=== PATIENT | female | born 1930 | race Caucasian/White ===

== ENCOUNTER 2017-04-24 12:42 | Inpatient (IN) | payer MEDICARE, BC ==
[~2017-04-24] VITALS: Ht 152.4 cm; Wt 81.2 kg
[~2017-04-24 12:42] MED LIST: ALTACE5 M1 PO; CARTIA XT180 MG PO; DIGOXIN125 MCG PO; DORZOLAMIDE HCL10 ML OP; KEFLEX500 MG PO; LASIX20 MG PO; LOVENOX60 MG/0.6 SC; NEXIUM40 MG PO; NORCO 5-325 TA1 EACH PO; NORVASC5 MG PO; OCUVITE TABLET1 EAC1 PO; OXYCODONE-ACET1 EAC1 PO; PANTOPRAZOLE SO40 MG PO; PLAVIX75 MG PO; POTASSIUM GLUC500 GM; PREDNISONE5 MG PO; PROMETHAZINE HC25 M1 PO; SYNTHROID125 MCG PO; THYROID MEDICATION PO; TOPROL XL100 MG PO; ULTRAM50 MG PO; VALIUM5 MG PO; XALATAN2.5 ML OU; [UNRECOGNIZED DRUG - OTHER] OU; lovenox SQ
[2017-04-24 13:53] LABS: BILIRUBIN,URINE NEGATIVE (NEGATIVE); KETONES,URINE NEGATIVE (NEGATIVE); LEUKOCYTE ESTERASE ,URINE TRACE (NEGATIVE); NITRITE,URINE NEGATIVE (NEGATIVE); PROTEIN,URINE DIPSTICK NEGATIVE (NEGATIVE); URINE UROBILINOGEN 0.2 mg/dL (0.2 - 1)
[2017-04-24 14:00] LABS: INR 1.27; PARTIAL THROMBOPLASTIN TIME 33.2 seconds (23.8-35.5); PROTHROMBIN TIME 16.6 seconds (11.9-14.5)
[2017-04-24 14:05] LABS: CLARITY,URINE SL CLOUDY (CLEAR); COLOR,URINE YELLOW (YELLOW)
[2017-04-24 14:09] LABS: ALBUMIN 3.8 g/dL (3.5-5.0); ALBUMIN/GLOBULIN RATIO 0.9 (0.8-2.0); ANION GAP 19.8 mmol/L (8-16); BACTERIA,URINE RARE /HPF; CALCIUM 9.2 mg/dL (8.4-10.2); CREATININE, SERUM 1.1 mg/dL (0.57-1.11); EPITHELIAL CELLS,URINE FEW /LPF; RBC,URINE 0-5 /HPF (0-5)
[2017-04-24 14:12] LABS: POTASSIUM 2.8 mmol/L (3.5-5.1)
[2017-04-24 14:16] LABS: CREATINE KINASE MB 1.2 ng/mL (0.00-5.00); TROPONIN I 0.041 ng/mL (0-0.300)
[2017-04-24 14:21] LABS: BASOPHILS # (AUTO) 0.1 (0.0-0.1); BASOPHILS % 0.7 % (0.0-1.0); EOSINOPHILS # (AUTO) 0.2 (0.0-0.4); EOSINOPHILS % 2.1 % (0.0-6.0); HEMATOCRIT 29.3 % (34.2-44.1); HEMOGLOBIN 9.2 g/dL (12.0-16.0); LYMPHOCYTES # (AUTO) 1.2 (1.0-3.2); LYMPHOCYTES % 12.1 % (18.0-39.1); MEAN CORPUSCULAR HEMOGLOBIN 29.6 pg (28-32); MEAN CORPUSCULAR HGB CONC 31.4 g/dL (31-35); MEAN CORPUSCULAR VOLUME 94.2 fL (81-99); MONOCYTES # (AUTO) 0.7 (0.2-0.8); MONOCYTES % 6.8 % (4.4-11.3); NEUTROPHILS # (AUTO) 7.9 (2.1-6.9); NEUTROPHILS % 77.8 % (38.7-80.0); PLATELET COUNT 365 x10e3/uL (140-360); RED BLOOD COUNT 3.11 x10e6/uL (3.6-5.1); RED CELL DISTRIBUTION WIDTH 15.8 % (11.7-14.4)
[2017-04-24] MEDS ORDERED: SODIUM CHLORIDE FLUSH 10 ML SYR INJ PRN (14:30)
[2017-04-24] MEDS ORDERED: ONDANSETRON HCL INJ 2 MG/ML VIAL IV PRN (14:30)
[2017-04-24] MEDS ORDERED: POTASSIUM CHLORIDE 20 MEQ TAB CR PO ONE ×2 (14:45→15:00)
--- NOTE | 2017-04-24 14:47 | Diagnostic Imaging Report ---
PROCEDURE:CHEST SINGLE (PORTABLE) TECHNIQUE:Portable AP chest INDICATION:Angina; irregular heartbeat. COMPARISON:Patients [facility], , CHEST SINGLE (PORTABLE), 01/29/2017, 10:55. FINDINGS: Study limited by underpenetration. Cardiomegaly with postoperative sequela of sternotomy. Questionable left pleural effusion. Left upper lung zone is clear. Intact skeleton. CONCLUSION: Limited study due to underpenetration. Questionable small left pleural effusion with either atelectasis or pneumonia. 2 view chest radiograph recommended. Dictated by: Claus Young M.D. on 04/24/2017 at 14:55 Electronically approved by: Claus Young M.D. on 04/24/2017 at 14:55
[2017-04-24] MEDS ORDERED: VIAGRA50 MG PO (15:33)
[2017-04-24] MEDS ORDERED: CALCIUM CARBON500 MG PO (15:33)
[2017-04-24] MEDS ORDERED: POTASSIUM CHLO20 ME1 PO (15:33)
[2017-04-24] MEDS ORDERED: METOPROLOL TART25 MG PO (15:33)
[2017-04-24] MEDS ORDERED: ACETAMINOPHEN325 M1 PO (15:33)
[2017-04-24] MEDS ORDERED: MELATONIN5 M3 PO (15:33)
[2017-04-24] MEDS ORDERED: DORZOLAMIDE HCL10 ML OP (15:33)
[2017-04-24] MEDS ORDERED: GABAPENTIN100 MG PO (15:33)
[2017-04-24] MEDS ORDERED: CALCITRIOL0.25 MCG PO (15:33)
[2017-04-24] MEDS ORDERED: CYMBALTA20 MG PO (15:33)
[2017-04-24] MEDS ORDERED: LORAZEPAM0.5 MG PO (15:33)
[2017-04-24] MEDS ORDERED: FERROUS SULFAT325 MG PO (15:33)
[2017-04-24] MEDS ORDERED: LACTULOSE20 GM/30 M PO (15:33)
[2017-04-24 16:50] VITALS: BP 125/69
[2017-04-24 18:13] VITALS: BP 125/69
[2017-04-24] MEDS ORDERED: ACETAMINOPHEN 325 MG TAB PO PRN (19:00)
[2017-04-24] MEDS ORDERED: FUROSEMIDE 20 MG TAB PO SCH (19:00)
[2017-04-24] MEDS ORDERED: LACTULOSE SYRUP 20 GM/30 ML UDC PO PRN (19:00)
[2017-04-24] MEDS ORDERED: TRAMADOL HCL 50 MG TAB PO PRN (19:00)
[2017-04-24 20:00] VITALS: BP 149/70
[2017-04-24 23:09] LABS: TROPONIN I 0.041 ng/mL (0-0.300)
[2017-04-25 00:17] VITALS: BP 137/73
[2017-04-25] MEDS: METOPROLOL TARTRATE 25 MG TAB PO SCH ×4 (00:39→18:00)
[2017-04-25] MEDS: LORAZEPAM 0.5 MG TAB PO PRN (00:39)
[2017-04-25 04:00] VITALS: BP 113/71
[2017-04-25] MEDS: LEVOTHYROXINE SODIUM 75 MCG TAB PO SCH (06:26)
[2017-04-25 06:31] LABS: BASOPHILS # (AUTO) 0.1 (0.0-0.1); EOSINOPHILS # (AUTO) 0.4 (0.0-0.4); EOSINOPHILS % 4.9 % (0.0-6.0); HEMATOCRIT 25.5 % (34.2-44.1); LYMPHOCYTES # (AUTO) 1.5 (1.0-3.2); LYMPHOCYTES % 17.8 % (18.0-39.1); MEAN CORPUSCULAR HEMOGLOBIN 29.7 pg (28-32); MEAN CORPUSCULAR HGB CONC 31.4 g/dL (31-35); MEAN CORPUSCULAR VOLUME 94.8 fL (81-99); MONOCYTES % 11.6 % (4.4-11.3); NEUTROPHILS # (AUTO) 5.2 (2.1-6.9); NEUTROPHILS % 64.2 % (38.7-80.0); PLATELET COUNT 339 x10e3/uL (140-360); RED BLOOD COUNT 2.69 x10e6/uL (3.6-5.1); RED CELL DISTRIBUTION WIDTH 15.6 % (11.7-14.4)
[2017-04-25 06:58] LABS: ALANINE AMINOTRANSFERASE 6 IU/L (0-55); ALBUMIN 3.1 g/dL (3.5-5.0); ALBUMIN/GLOBULIN RATIO 0.9 (0.8-2.0); ALKALINE PHOSPHATASE 62 IU/L (40-150); ANION GAP 10.8 mmol/L (8-16); BLOOD UREA NITROGEN 15 mg/dL (7-26); BUN/CREATININE RATIO 19 (6-25); CALCIUM 8.5 mg/dL (8.4-10.2); CARBON DIOXIDE 32 mmol/L (22-29); CHLORIDE 102 mmol/L (98-107); CREATININE, SERUM 0.81 mg/dL (0.57-1.11); EST GLOMERULAR FILTRATION RATE > 60 ML/MIN (60-); GLUCOSE 102 mg/dL (74-118); MAGNESIUM 2.1 MG/DL (1.3-2.1); PHOSPHORUS 3.5 MG/DL (2.3-4.7); SODIUM 142 mmol/L (136-145)
[2017-04-25 07:16] LABS: TROPONIN I 0.028 ng/mL (0-0.300)
[2017-04-25 07:27] LABS: POTASSIUM 2.8 mmol/L (3.5-5.1)
[2017-04-25 08:00] VITALS: BP 112/56
[2017-04-25] MEDS ORDERED: POTASSIUM CHLORIDE 20 MEQ TAB CR PO SCH (09:00)
[2017-04-25] MEDS: POTASSIUM CHLORIDE 20 MEQ TAB CR PO SCH ×4 (09:00→13:07)
[2017-04-25] MEDS: PREDNISONE 5 MG TAB PO SCH (09:04)
[2017-04-25] MEDS: CLOPIDOGREL BISULFATE 75 MG TAB PO SCH (09:04)
[2017-04-25] MEDS: GABAPENTIN 100 MG CAP PO SCH ×2 (09:04→17:00)
[2017-04-25] MEDS: PANTOPRAZOLE SOD 40 MG TABEC PO SCH ×2 (09:04→17:00)
[2017-04-25] MEDS: CALCITRIOL 0.25 MCG CAP PO SCH (09:04)
[2017-04-25] MEDS: DULOXETINE HCL 20 MG DELAYED RELEASE PO SCH ×2 (09:04→17:00)
[2017-04-25] MEDS: FERROUS SULFATE 325 MG TAB PO SCH (09:04)
[2017-04-25] MEDS: SILDENAFIL CITRATE 20 MG TAB PO SCH ×2 (09:04→17:00)
[2017-04-25 12:00] VITALS: BP 108/58
[2017-04-25] MEDS ORDERED: FAMOTIDINE 20 MG TAB PO PRN (13:30)
[2017-04-25] MEDS ORDERED: ALPRAZOLAM 0.5 MG TAB PO PRN (13:30)
[2017-04-25 16:00] VITALS: BP 101/62
[2017-04-25] MEDS ORDERED: SODIUM CHLORIDE 0.9% 250ML 250 ML ONE (16:35)
[2017-04-25] MEDS: IRON SUCROSE 100 MG in SODIUM CHLORIDE 0.9% 100 ML 100 ML IV SCH (17:00)
[2017-04-26] MEDS: METOPROLOL TARTRATE 25 MG TAB PO SCH ×4 (00:08→18:00)
[2017-04-26] MEDS: LEVOTHYROXINE SODIUM 75 MCG TAB PO SCH (05:54)
--- NOTE | 2017-04-26 06:34 | Diagnostic Imaging Report ---
EXAM: CHEST SINGLE (PORTABLE), AP 1 view DATE: 04/26/2017 5:00 AM Time stamp on exam: 0552 hours INDICATION: Congestive heart failure, pneumonia COMPARISON: AP view of the chest April 24, 2017 FINDINGS: LINES/TUBES: None LUNGS: Bibasilar atelectasis. PLEURA: Indeterminate for small layering pleural effusions bilaterally. HEART AND MEDIASTINUM: Stable appearance of cardiomediastinal silhouette, median sternotomy wires and mediastinal clips. BONES AND SOFT TISSUES: No acute findings. IMPRESSION: No interval change. Signed by: Dr. Roopa Barth M.D. on 04/26/2017 6:31 AM
[2017-04-26] MEDS: DULOXETINE HCL 20 MG DELAYED RELEASE PO SCH ×3 (07:24→17:00)
[2017-04-26 07:58] LABS: BASOPHILS # (AUTO) 0.1 (0.0-0.1); BASOPHILS % 0.9 % (0.0-1.0); EOSINOPHILS # (AUTO) 0.4 (0.0-0.4); HEMATOCRIT 24.9 % (34.2-44.1); LYMPHOCYTES # (AUTO) 1.8 (1.0-3.2); LYMPHOCYTES % 21.5 % (18.0-39.1); MEAN CORPUSCULAR HEMOGLOBIN 29.8 pg (28-32); MEAN CORPUSCULAR HGB CONC 31.3 g/dL (31-35); MONOCYTES # (AUTO) 0.8 (0.2-0.8); MONOCYTES % 9.3 % (4.4-11.3); NEUTROPHILS # (AUTO) 5.1 (2.1-6.9); NEUTROPHILS % 62.7 % (38.7-80.0); PLATELET COUNT 334 x10e3/uL (140-360); RED BLOOD COUNT 2.62 x10e6/uL (3.6-5.1); RED CELL DISTRIBUTION WIDTH 15.4 % (11.7-14.4)
[2017-04-26 08:00] VITALS: BP 143/65
[2017-04-26 08:09] LABS: HEMOGLOBIN 7.8 g/dL (12.0-16.0)
[2017-04-26 08:31] LABS: ALANINE AMINOTRANSFERASE 6 IU/L (0-55); ALBUMIN/GLOBULIN RATIO 0.9 (0.8-2.0); ALKALINE PHOSPHATASE 59 IU/L (40-150); ANION GAP 10.7 mmol/L (8-16); BLOOD UREA NITROGEN 12 mg/dL (7-26); BUN/CREATININE RATIO 16 (6-25); CALCIUM 8.5 mg/dL (8.4-10.2); CARBON DIOXIDE 28 mmol/L (22-29); CHLORIDE 104 mmol/L (98-107); CREATININE, SERUM 0.77 mg/dL (0.57-1.11); EST GLOMERULAR FILTRATION RATE > 60 ML/MIN (60-); GLUCOSE 99 mg/dL (74-118); POTASSIUM 3.7 mmol/L (3.5-5.1); SODIUM 139 mmol/L (136-145)
[2017-04-26] MEDS: SILDENAFIL CITRATE 20 MG TAB PO SCH ×2 (08:45→17:00)
[2017-04-26] MEDS: GABAPENTIN 100 MG CAP PO SCH ×2 (08:45→17:00)
[2017-04-26] MEDS: CLOPIDOGREL BISULFATE 75 MG TAB PO SCH (08:45)
[2017-04-26] MEDS: POTASSIUM CHLORIDE 20 MEQ TAB CR PO SCH (08:45)
[2017-04-26] MEDS: PANTOPRAZOLE SOD 40 MG TABEC PO SCH ×2 (08:45→17:00)
[2017-04-26] MEDS: PREDNISONE 5 MG TAB PO SCH (08:45)
[2017-04-26] MEDS: SPIRONOLACTONE 25 MG TAB PO SCH (08:45)
[2017-04-26] MEDS: FERROUS SULFATE 325 MG TAB PO SCH (08:45)
[2017-04-26] MEDS: CALCITRIOL 0.25 MCG CAP PO SCH (08:45)
[2017-04-26 12:00] VITALS: BP 113/58
--- NOTE | 2017-04-26 13:01 | History and Physical ---
CHIEF COMPLAINT: "I do not feel well". HISTORY OF PRESENT ILLNESS: This is an 86-year-old white woman who was just recently discharged from a local halfway facility, namely [facility], but unfortunately her medications were called into the wrong pharmacy. The patient subsequently saw her dope sprayer, namely Dr. Jordon Ferrell, who directed her to [facility] emergency room because she had been out of her cardiac medications for over 24 hours. The patient did complain of slight shortness of breath and a productive cough. The patient denies any chest pain or tightness. She also denies any palpitations. In the emergency room, the patient was found to be in atrial fibrillation with heart rate of 100. Chest x-ray done in the emergency room revealed a small left pleural effusion with either atelectasis or pneumonia. Chest x-ray also revealed cardiomegaly. Blood work on admission revealed a hemoglobin of 9.2 grams/dL. The patient's white blood cell count on admission was 10,100 with 77% segmented cells. Also on admission the patient was found to have potassium 2.8 and a BUN and creatinine of 20 and 1.1 respectively. The patient's B-natriuretic peptide level was elevated to 414. Serial cardiac enzymes done in the emergency room did not reveal any evidence of acute myocardial ischemia or infarction. The patient was admitted for further evaluation and treatment. In January of 2017, the patient was found to have Streptococcus viridans bacteremia, and was subsequently transferred to a long-term acute care facility, namely [facility], where she received intravenous antibiotics for this condition. REVIEW OF SYSTEMS: GENERAL: Weight has been fairly stable over the last few months. No fever or chills, but she does complain of generalized weakness. HEENT: No headaches, no visual changes. CARDIOVASCULAR: Does complain of productive cough. Denies any chest pain or tightness. Denies any palpitations. She does become short of breath quite easily. GI: No nausea, vomiting, constipation. : She does have history of frequent urinary tract infections. NEUROMUSCULAR: Globally weak, but the patient just recently at the halfway facility she was able to ambulate with a rolling walker. PAST MEDICAL HISTORY: 1. Chronic diastolic congestive heart failure. 2. Hypertensive heart disease. 3. Stage 2 chronic kidney disease. 4. Coronary artery disease. 5. Sick sinus syndrome with severe bradyarrhythmia in January 2017 that required temporary transvenous pacemaker placement. 6. Anemia secondary to chronic disease. 7. Hypothyroidism. 8. Rheumatoid arthritis. 9. Pulmonary hypertension. 10. Depression. ALLERGIES: PENICILLIN, SULFA ANTIBIOTICS, CLINDAMYCIN, GATIFLOXACIN, LEVOFLOXACIN, NITROFURANTOIN. FAMILY HISTORY: Mother of a stroke. Father lived to be 97 years old. SOCIAL HISTORY: She is a . She lives with her adult daughter. No history of tobacco use. Only drinks alcohol sporadically. PAST SURGICAL HISTORY: 1. Aortic valve replacement, Bovine, in 2004. 2. Coronary artery bypass grafting in 2004. 3. Coronary artery stent placement in 2012 (LAD). 4. Ascending aortic aneurysm repair in 2012. HOME MEDICATIONS: 1. Acetaminophen 650 mg q.6 h. p.r.n. fever. 2. Calcitriol 0.5 mcg once daily. 3. Calcium carbonate 5 mg b.i.d. 4. Clopidogrel 75 mg daily. 5. Dorzolamide 1 drop to each eye daily. 6. Cymbalta 20 mg daily. 7. Ferrous sulfate 325 mg daily. 8. Furosemide 20 mg daily. 9. Gabapentin 200 mg daily. 10. Lactulose 20 grams daily. 11. Levothyroxine 150 mcg daily. 12. Lorazepam 0.5 mg p.o. b.i.d. for anxiety. 13. Melatonin 5 mg nightly. 14. Metoprolol tartrate 25 mg q.6 h. 15. Pantoprazole 40 mg b.i.d. 16. Potassium chloride 20 mEq daily. 17. Prednisone 5 mg daily. 18. Sildenafil 20 mg b.i.d. 19. Tramadol 50 mg q.6 h. p.r.n. pain. PHYSICAL EXAMINATION GENERAL: She is awake, alert, fully oriented, hard of hearing, but she is pleasant and cooperative to exam. VITAL SIGNS: Height 5 feet 0 inches, weight 172 pounds, calculated body mass index of 33. Blood pressure is 112/56, pulse 70, respirations 18, temperature 97.7, oxygen saturation 97% on room air. INTEGUMENT: Skin is warm and dry. No pallor, jaundice, diaphoresis. HEENT: Anicteric sclerae with moist mucous membranes. NECK: Supple. No evidence of jugular venous distention. CARDIOVASCULAR: Distant heart sounds. Regular rate and rhythm. LUNGS: No rales, no rhonchi, no wheezing. ABDOMEN: Obese, benign. EXTREMITIES: No edema but she does have arthritic deformities in her hands consistent with rheumatoid arthritis. NEUROLOGIC: Intact. She is globally awake, but no gross focal deficits appreciated. IMPRESSION 1. [id number] diastolic congestive heart failure. 2. Atrial fibrillation. 3. Anemia secondary to chronic disease. 4. Rheumatoid arthritis. 5. Hypokalemia. 6. Left lower lobe pneumonia, likely. PLAN: 1. Order blood and urine cultures. 2. Continue congestive heart failure medical management. 3. Replete potassium. 4. Rate control for patient with atrial fibrillation. 5. Consult cardiology. 6. Will consider restarting anticoagulation for the patient's atrial fibrillation. 7. Will proceed with physical therapy. 8. I spoke at length with the patient about her code status and resuscitation status, and at this time the patient states she is a full code status. I spent an hour in the care of this patient. Job#: [id number]
[2017-04-26] MEDS ORDERED: SODIUM CHLORIDE 0.9% 250ML 250 ML IV ONE (13:30)
[2017-04-26] MEDS ORDERED: SPIRONOLACTONE 25 MG TAB PO ONE (14:00)
[2017-04-26] MEDS: IRON SUCROSE 100 MG in SODIUM CHLORIDE 0.9% 100 ML 100 ML IV SCH (14:00)
[2017-04-26] MEDS: LORAZEPAM 0.5 MG TAB PO PRN (15:44)
[2017-04-26 16:00] VITALS: BP 123/58
[2017-04-26] MEDS ORDERED: SODIUM CHLORIDE 0.9% 250ML 250 ML ONE (16:26)
[2017-04-26 20:00] VITALS: BP 120/55
[2017-04-26 21:54] LABS: HEMATOCRIT 29.6 % (34.2-44.1); HEMOGLOBIN 9.5 g/dL (12.0-16.0)
[2017-04-27] VITALS: BP 119/56
[2017-04-27] MEDS: METOPROLOL TARTRATE 25 MG TAB PO SCH ×4 (00:24→18:11)
--- NOTE | 2017-04-27 03:58 | Consultation ---
DATE OF CONSULTATION: April 25, 2017 This 86-year-old patient presented to the emergency room with angina and atrial fibrillation. The patient recently developed several episodes of resting angina pectoris while at the [facility] area. However, electrocardiogram on April 22, 2017, showed normal sinus rhythm with nonspecific ST-T changes. The patient was then seen by myself on April 24, 2017, and was found to be in rapid atrial fibrillation with marked ST-depression mostly in the anterior leads. The patient also was aching all over and complaining of headache, and was advised to be hospitalized. The patient is known to have coronary artery disease. Had internal mammary artery implanted into the LAD in 2004, and in 2008 required stenting of the LAD, as well as dilatation of the insertion site of the SHANNON. The patient's cardiac history is also significant that she has a long history of paroxysmal and chronic atrial fibrillation with premature ventricular contractions. She also has had previous aortic valve replacement in 2004 with a 21 Magna Chris-Patel pericardial Perimount bovine bioprosthesis. In May of 2012, the patient was re-evaluated for dissecting ascending aortic aneurysm and required Dacron graft implantation at [facility] by Dr. Acosta. The graft was implanted above the coronary arteries and the distal insertion was on the lower part of the aortic arch. PAST MEDICAL HISTORY: Also reveals that she has hypertensive cardiovascular disease, rheumatic polymyalgia, hyperthyroidism, GERD with Durant's esophagus, hyperlipidemia, peripheral neuropathy, restless leg syndrome. 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 Rangel in the past. She had thyroid surgery in . She had a previous hysterectomy. She had cystocele and rectocele, and had a history of rectal bleeding, depression, osteoporosis with low back pain syndrome, kyphoplasty at L3. She also had an episode of infection, history of fracture of the left fibula. 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 She also has a history of a nodule in the right upper lobe of her lung. The patient most recently has been hospitalized with rapid atrial fibrillation, pneumonia and septicemia due to Staph viridans. The patient was then transferred to [facility], and had a long recovery, and was then sent to the [facility] area where she was recently discharged. ALLERGIES: REVEALS THAT SHE IS ALLERGIC TO PENICILLIN, SULFA, CLINDAMYCIN, LEVAQUIN, MACRODANTIN. SHE ALSO HAS INTOLERANCE TO STATINS. ALSO, INDICATED THAT SHE IS HAVING INTOLERANCE TO ACETAMINOPHEN AND ALLERGY SHEET IN THE CHART. SOCIAL HISTORY: Negative. FAMILY HISTORY: Positive for hypertension and stroke. REVIEW OF SYSTEMS: Patient denies any cough or sputum production. The patient denies any abdominal pain, leg pain or leg swelling. PHYSICAL EXAMINATION VITALS: Blood pressure 112/56. The patient's temperature is 97.7, oxygenation saturation is 97%. NECK: Carotid pulses are present. CHEST: Clear to auscultation. CARDIOVASCULAR: Normal apical impulse. The rhythm is regular. There is a systolic murmur 2-3/6. No audible diastolic murmurs. There is no rub. There is no S3. ABDOMEN: Soft. There is no tenderness or organomegaly. EXTREMITIES: Pulses are present. There is no peripheral edema. NEUROLOGICAL: Does not reveal any motor defect. IMPRESSION 1. Coronary disease: Postoperative aortic bypass procedure and unstable angina pectoris. 2. Recurrent atrial fibrillation, mild. 3. Postoperative bioprosthesis of aortic valve with severe recurrent stenosis of the bioprosthesis. 4. Hypertensive cardiovascular disease. 5. History of anemia and rectal bleeding. RECOMMENDATION: Agree with the present excellent management and correction of the patient's hypokalemia. The patient had shown a drop in the H and H since admission. Therefore, I recommend to withhold any further anticoagulation particularly since she converted to regular sinus rhythm on medical management. The patient is tentatively scheduled for cardiac catheterization depending on the correction of the hypokalemia and stabilization of the patient's anemia for which she may the require also a blood transfusion. Thank you very much for letting me see this very nice patient. Job#: [id number] RI cc:ANNE RIGGS MD
[2017-04-27 04:00] VITALS: BP 118/55
[2017-04-27] MEDS: LEVOTHYROXINE SODIUM 75 MCG TAB PO SCH (06:32)
[2017-04-27 06:48] LABS: ALBUMIN 2.9 g/dL (3.5-5.0); ALBUMIN/GLOBULIN RATIO 0.9 (0.8-2.0); ALKALINE PHOSPHATASE 55 IU/L (40-150); ANION GAP 11.8 mmol/L (8-16); BLOOD UREA NITROGEN 12 mg/dL (7-26); BUN/CREATININE RATIO 15 (6-25); CALCIUM 8.7 mg/dL (8.4-10.2); CARBON DIOXIDE 26 mmol/L (22-29); CHLORIDE 106 mmol/L (98-107); CREATININE, SERUM 0.81 mg/dL (0.57-1.11); EST GLOMERULAR FILTRATION RATE > 60 ML/MIN (60-); GLUCOSE 93 mg/dL (74-118); POTASSIUM 3.8 mmol/L (3.5-5.1); SODIUM 140 mmol/L (136-145)
[2017-04-27 06:49] LABS: BASOPHILS # (AUTO) 0.1 (0.0-0.1); BASOPHILS % 0.9 % (0.0-1.0); EOSINOPHILS # (AUTO) 0.5 (0.0-0.4); EOSINOPHILS % 4.7 % (0.0-6.0); HEMOGLOBIN 9.5 g/dL (12.0-16.0); LYMPHOCYTES % 19.4 % (18.0-39.1); MEAN CORPUSCULAR HEMOGLOBIN 29.1 pg (28-32); MEAN CORPUSCULAR HGB CONC 31.7 g/dL (31-35); MONOCYTES # (AUTO) 0.8 (0.2-0.8); MONOCYTES % 7.4 % (4.4-11.3); NEUTROPHILS # (AUTO) 7.1 (2.1-6.9); NEUTROPHILS % 67.2 % (38.7-80.0); PLATELET COUNT 316 x10e3/uL (140-360); RED BLOOD COUNT 3.26 x10e6/uL (3.6-5.1)
[2017-04-27 06:52] LABS: ALANINE AMINOTRANSFERASE < 6 IU/L (0-55)
[2017-04-27 08:00] VITALS: BP 155/55
[2017-04-27] MEDS: FERROUS SULFATE 325 MG TAB PO SCH ×2 (09:00→12:40)
[2017-04-27] MEDS: CALCITRIOL 0.25 MCG CAP PO SCH ×2 (09:00→12:40)
[2017-04-27] MEDS: SPIRONOLACTONE 25 MG TAB PO SCH ×2 (09:00→12:40)
[2017-04-27] MEDS: SILDENAFIL CITRATE 20 MG TAB PO SCH ×2 (09:00→17:30)
[2017-04-27] MEDS: GABAPENTIN 100 MG CAP PO SCH ×2 (09:00→17:30)
[2017-04-27] MEDS: PREDNISONE 5 MG TAB PO SCH ×2 (09:00→12:40)
[2017-04-27] MEDS: CLOPIDOGREL BISULFATE 75 MG TAB PO SCH ×2 (09:00→17:29)
[2017-04-27] MEDS: DULOXETINE HCL 20 MG DELAYED RELEASE PO SCH ×2 (09:00→17:29)
[2017-04-27] MEDS: PANTOPRAZOLE SOD 40 MG TABEC PO SCH ×2 (09:00→17:30)
[2017-04-27 12:05] VITALS: BP 166/73
[2017-04-27] MEDS ORDERED: IOPAMIDOL 300MG/ML 100 ML INFUS..BTL IV ONE (12:32)
[2017-04-27] MEDS ORDERED: HEPARIN SOD/SOD CHLORIDE 2,000 ML ONE (12:32)
[2017-04-27] MEDS ORDERED: IOPAMIDOL 370 MG/ML 200 ML INFUS..BTL INJ ONE (12:32)
[2017-04-27] MEDS ORDERED: LIDOCAINE HCL 2% LOCAL 20 ML VIAL ONE ×2 (12:33→13:53)
[2017-04-27] MEDS: POTASSIUM CHLORIDE 20 MEQ TAB CR PO SCH (12:40)
[2017-04-27] MEDS ORDERED: SODIUM CHLORIDE 0.9% 1000ML 1,000 ML ONE (13:10)
[2017-04-27] MEDS ORDERED: MIDAZOLAM HCL 2 MG/2 ML VIAL ONE (13:10)
[2017-04-27] MEDS ORDERED: FENTANYL CITRATE/PF 100MCG/2 ML INJ ONE (13:10)
[2017-04-27 16:04] VITALS: BP 155/81
[2017-04-27] MEDS: IRON SUCROSE 100 MG in SODIUM CHLORIDE 0.9% 100 ML 100 ML IV SCH (17:29)
[2017-04-27] MEDS: VERAPAMIL HCL 80 MG TAB PO SCH (18:11)
[2017-04-27] MEDS ORDERED: HYDROMORPHONE 1MG/1ML INJ IV PRN (18:15)
[2017-04-27 21:02] VITALS: BP 100/49
--- NOTE | 2017-04-27 21:45 | Operative Report ---
DATE OF PROCEDURE: April 27, 2017 PREOPERATIVE DIAGNOSES 1. Coronary artery disease, postop aortocoronary bypass procedure. 2. Unstable angina pectoris. 3. Severe aortic stenosis. Postoperative aortic valve replacement with bioprosthesis. 4. History of renal artery stenosis and renovascular hypertension. 5. Paroxysmal atrial fibrillation. 6. Postoperative resection of thoracic aortic aneurysm and replacement with Dacron graft. PROCEDURES 1. Coronary angiography, selective right and left coronary angiogram and the injection of bypass graft. 2. Selective bilateral renal angiogram. 3. Angiogram of the right inguinal area and closure of right femoral artery with Angio-Seal. 4. Moderate sedation with a 0.5 mg of Versed and 12.5 mcg of Fentanyl. DESCRIPTION OF PROCEDURE: After usual prepping and draping, the right inguinal area was infiltrated with local lidocaine. A 6-Greenlandic arterial sheath was placed in the right femoral artery and selective right and left coronary angiograms were performed with modified Alondra type catheters. A 5-Greenlandic AAKASH catheter was utilized for selective angiogram of the left internal mammary artery bypass graft to the LAD. This was followed by a selective renal angiography using the 5-Greenlandic KR #6 catheter, which has been utilized for the right coronary angiogram. After completion of the angiographic information from the coronary and renal arteries, angiogram of the right groin area in the right anterior oblique position was performed prior to closure of the right femoral artery with Angio-Seal. After adequate hemostasis was achieved, dressing was applied the patient returned to her room in stable condition. There were no complications. Procedure was well tolerated. There was no blood loss and the total amount of contrast utilized was 160 mL. Findings of the cardiac catheterization: The left main coronary artery was showing some mild 10% to 20% narrowing in the middle and distal portion prior to the trifurcation. The left anterior descending branch divided itself in 2 large branches with the second branch actually being larger than the [place] left anterior descending artery indicating a dual LAD. There was a large septal marshmallow maker just prior to the takeoff of the LAD itself, which showed about 80% segmental narrowing of the previously placed coronary stent, diagonal which probably ____ the dual portion of the LAD, only showed some mild plaque formation amounting about 10% stenosis. The system was quite large. There was a small intermediate branch and there was a small intermediate branch completing the trifurcation. However, there was a larger intermediate branch coming off the proximal LAD, which was normal. The left circumflex and obtuse marginal system was quite small without any obstruction. The right coronary artery was large and dominant showing diffuse plaques with about 20% to 30% narrowing in the mid to distal portion of the right coronary artery. The descending branch was normal and there was a large posterior lateral branch, which also was normal. It was of interest that by injection of the left coronary artery there was flush into the left ventricle coming off the diagonal branches. The injection of the internal mammary artery showed a large patent internal mammary artery. There was some mild 40% narrowing at the insertion site. There was evidence of some bidirectional flow as well. The LAD after the insertion of the mammary graft showed some mild plaque formation and there was about a focal 75% stenosis in the more distal portion of the LAD which then tapered down to the apex. The left subclavian artery showed some mild 30% narrowing in the mid portion. The left vertebral artery appeared to be large and dominant without any significant stenosis as visualized during the procedure. Left ventricular angiogram was not performed and the left ventricle was not entered because of the presence of bioprosthesis. The renal angiogram showed fibromuscular hypoplasia of the proximal right renal artery. The left renal artery showed steep downward proximal takeoff and there was about a 30% to 40% narrowing after the left renal artery showed a more normal approach. By injection in the left iliac and proximal superficial femoral artery and profunda branch, there was evidence of 20% to 30% narrowing at the common femoral artery. There was flush to the contralateral iliac artery which appeared to be normal but showed some tortuous course. As seen on fluoroscopy, there also was evidence of previous kyphoplasty at the lumbar vertebra number 3. IMPRESSION: 1. Coronary artery disease with 80% in-stent stenosis of the LAD and 75% focal stenosis distal to the insertion site of the internal mammary artery into the LAD, otherwise mild plaque formation was noted in the large diagonal branch, which probably can be considered second LAD. 2. Diffuse plaques with mild stenosis of the right coronary artery which is dominant. 3. Patent large internal mammary artery to the LAD as described in detail above. 4. 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 RECOMMENDATIONS: Nuclear stress test may be helpful to decide the significance of focal stenosis in the mid to distal portion of the LAD distal to the bypass graft insertion site, particularly since the echocardiogram showed normal left ventricular function without any global or regional wall motion abnormalities. As noticed on the echocardiogram, the patient does have severe stenosis of the bioprosthesis, which could be considered for placing stented valve into this bioprosthesis. However, there does not appear to be any emergency. However, it could be a contributing factor to the patient's recent unstable angina pectoris. Considering the patient's medical history and previous Dacron replacement of the thoracic aortic aneurysm, I do not believe the patient is a good candidate for a redo aortic valve replacement and this was discussed in detail with the patient and her family. The patient also has shown more recently recurrent episodes of melena with GI bleeding and drop in hematocrit and this also needs to be further evaluated by endoscopy since the patient has a history of paroxysmal atrial fibrillation and even evidence of some more longer lasting chronic atrial fibrillation which required to discontinue anticoagulation with Xarelto and requirement of blood transfusions, and for this particular incident would recommend to evaluate the patient from the GI view point, and since the patient has seen Dr. Ted Alonso in the past, I would like to consult Dr. Ted Alonso for further investigation of the patient's GI bleeding. To summarize, I would recommend to obtain a nuclear stress test to evaluate the patient's ischemia secondary to her coronary disease, evaluate the patient for endoscopy and evaluate the patient for possibly being a candidate for stenting of the stenotic bioprosthesis. Otherwise, continue medical management with control of hypertension and control of her atrial fibrillation and maintain her present medications. Job#: [id number] cc:ANNE RIGGS MD
[2017-04-28] VITALS (7 sets, daily range): BP systolic 96–127; BP diastolic 53–62
[2017-04-28] MEDS: METOPROLOL TARTRATE 25 MG TAB PO SCH ×4 (00:30→19:37)
[2017-04-28] MEDS: LEVOTHYROXINE SODIUM 75 MCG TAB PO SCH (05:42)
[2017-04-28] MEDS: CLOPIDOGREL BISULFATE 75 MG TAB PO SCH (08:50)
[2017-04-28] MEDS: SPIRONOLACTONE 25 MG TAB PO SCH (08:50)
[2017-04-28] MEDS: FERROUS SULFATE 325 MG TAB PO SCH (08:50)
[2017-04-28] MEDS: VERAPAMIL HCL 80 MG TAB PO SCH ×2 (08:50→16:10)
[2017-04-28] MEDS: CALCITRIOL 0.25 MCG CAP PO SCH (08:50)
[2017-04-28] MEDS: DULOXETINE HCL 20 MG DELAYED RELEASE PO SCH ×2 (08:50→16:48)
[2017-04-28] MEDS: PANTOPRAZOLE SOD 40 MG TABEC PO SCH ×2 (08:50→16:48)
[2017-04-28] MEDS: PREDNISONE 5 MG TAB PO SCH (08:50)
[2017-04-28] MEDS: POTASSIUM CHLORIDE 20 MEQ TAB CR PO SCH (10:23)
[2017-04-28] MEDS: SILDENAFIL CITRATE 20 MG TAB PO SCH ×2 (10:23→16:48)
[2017-04-28] MEDS: GABAPENTIN 100 MG CAP PO SCH ×2 (10:23→16:38)
[2017-04-29] VITALS: BP 110/51
[2017-04-29 04:00] VITALS: BP 109/53
[2017-04-29] MEDS: METOPROLOL TARTRATE 25 MG TAB PO SCH ×3 (06:00→12:00)
[2017-04-29] MEDS: LEVOTHYROXINE SODIUM 75 MCG TAB PO SCH (06:20)
[2017-04-29 08:19] VITALS: BP 141/65
[2017-04-29] MEDS: CLOPIDOGREL BISULFATE 75 MG TAB PO SCH (09:00)
[2017-04-29] MEDS: SPIRONOLACTONE 25 MG TAB PO SCH (09:17)
[2017-04-29] MEDS: PANTOPRAZOLE SOD 40 MG TABEC PO SCH ×2 (09:18→16:49)
[2017-04-29] MEDS: CALCITRIOL 0.25 MCG CAP PO SCH (09:18)
[2017-04-29] MEDS: FERROUS SULFATE 325 MG TAB PO SCH (09:18)
[2017-04-29] MEDS: VERAPAMIL HCL 80 MG TAB PO SCH ×2 (09:18→16:38)
[2017-04-29] MEDS: GABAPENTIN 100 MG CAP PO SCH ×2 (09:18→16:49)
[2017-04-29] MEDS: SILDENAFIL CITRATE 20 MG TAB PO SCH ×2 (09:18→16:49)
[2017-04-29] MEDS: DULOXETINE HCL 20 MG DELAYED RELEASE PO SCH ×2 (09:18→16:49)
[2017-04-29] MEDS: PREDNISONE 5 MG TAB PO SCH (09:19)
[2017-04-29] MEDS: POTASSIUM CHLORIDE 20 MEQ TAB CR PO SCH (09:20)
[2017-04-29 12:33] VITALS: BP 104/52
== END 2017-04-29 16:58 | disposition home or self-care (01) | DRG 286 ==
LOC: ER 12:42 → ERHOLD 14:40 → MED/SURG2 15:51 → MED/SURG 04-28 22:01
PROC: 30230N1 Transfusion of Nonautologous Red Blood Cells into Peripheral Vein, Open Approach (ICD-10-PCS; principal; 2017-04-26)
PROC: 4A023N7 Measurement of Cardiac Sampling and Pressure, Left Heart, Percutaneous Approach (ICD-10-PCS; 2017-04-27)
PROC: B2111ZZ Fluoroscopy of Multiple Coronary Arteries using Low Osmolar Contrast (ICD-10-PCS; 2017-04-27)
PROC: B2181ZZ Fluoroscopy of Left Internal Mammary Bypass Graft using Low Osmolar Contrast (ICD-10-PCS; 2017-04-27)
PROC: B4181ZZ Fluoroscopy of Bilateral Renal Arteries using Low Osmolar Contrast (ICD-10-PCS; 2017-04-27)
PROC: B41B1ZZ Fluoroscopy of Other Intra-Abdominal Arteries using Low Osmolar Contrast (ICD-10-PCS; 2017-04-27)
DX: T82.857A Stenosis of other cardiac prosthetic devices, implants and grafts, initial encounter (principal); I50.33 Acute on chronic diastolic (congestive) heart failure; J18.9 Pneumonia, unspecified organism; I13.0 Hypertensive heart and chronic kidney disease with heart failure and stage 1 through stage 4 chronic kidney disease, or unspecified chronic kidney disease; G62.9 Polyneuropathy, unspecified; I25.110 Atherosclerotic heart disease of native coronary artery with unstable angina pectoris; I27.20 Pulmonary hypertension, unspecified; I48.0 Paroxysmal atrial fibrillation; I49.5 Sick sinus syndrome; M06.9 Rheumatoid arthritis, unspecified; E03.9 Hypothyroidism, unspecified; D63.8 Anemia in other chronic diseases classified elsewhere; N18.2 Chronic kidney disease, stage 2 (mild); F32.9 Major depressive disorder, single episode, unspecified; E87.6 Hypokalemia; Z79.01 Long term (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 of anticoagulants; I35.0 Nonrheumatic aortic (valve) stenosis; G25.81 Restless legs syndrome; E05.90 Thyrotoxicosis, unspecified without thyrotoxic crisis or storm; Z88.0 Allergy status to penicillin; Z88.2 Allergy status to sulfonamides; Z95.1 Presence of aortocoronary bypass graft; Z95.2 Presence of prosthetic heart valve; Z95.5 Presence of coronary angioplasty implant and graft; I49.3 Ventricular premature depolarization; M81.0 Age-related osteoporosis without current pathological fracture
CPT/HCPCS: 36140; 36415; 36430; 71010; 77002; 80053; 81001; 82550; 82553; 83735; 83880; 84100; 84484; 85014; 85018; 85025; 85610; 85730; 86850; 86900; 86920; 87040; 87086; 93005; 93306; 93455; 93458; 99284; J1170; J1756; J2001; J2250; J2405; J7030; J7050; J7512; P9016; Q9967

== ENCOUNTER → 2017-05-04 | Day surgery (SDC) | payer MEDICARE, BC ==
[~2017-05-04] MED LIST changes: +ACETAMINOPHEN325 M1 PO; +CALCITRIOL0.25 MCG PO; +CALCIUM CARBON500 MG PO; +CYMBALTA20 MG PO; +FENTANYL CITRATE/PF 100MCG/2 ML INJ ONE; +FERROUS SULFAT325 MG PO; +GABAPENTIN100 MG PO; +GLUCAGON FOR INJ 1 MG VIAL ONE; +LACTULOSE20 GM/30 M PO; +LIDOCAINE HCL 2% LOCAL INJ 5 ML SDV VIAL INJ ONE; +LORAZEPAM0.5 MG PO; +MELATONIN5 M3 PO; +METOPROLOL TART25 MG PO; +MIDAZOLAM HCL 2 MG/2 ML VIAL ONE; +POTASSIUM CHLO20 ME1 PO; +PROPOFOL IV EMULSION 10 MG/ML 50 ML VIAL ONE; +VIAGRA50 MG PO
--- NOTE | 2017-05-04 20:30 | Operative Report ---
DATE OF PROCEDURE: May 04, 2017 REFERRING PHYSICIAN: Dr. Liane Sánchez. PROCEDURE PERFORMED: Esophagogastroduodenoscopy with biopsies and colonoscopy with polypectomy. INDICATIONS FOR ESOPHAGOGASTRODUODENOSCOPY: Anemia, guaiac positive stools, history of dark stools. INDICATIONS FOR COLONOSCOPY: Anemia, guaiac positive stools. MEDICATION: Patient was done under MAC. Please see anesthesiologist's note. PROCEDURE: With the patient in the left lateral decubitus position, flexible fiberoptic Olympus gastroscope was introduced into the esophagus under direct visualization without any difficulty. There was some patchy erythema noted in distal esophagus. The scope was then advanced with ease into the stomach traversing a small hiatal hernia. Mucosa overlying the antrum and the body revealed some patchy erythema and mild to moderate edema and biopsies were obtained and sent to stain for H. pylori. There was an approximately 1.5 cm peripyloric soft tissue lesion that was biopsied. The scope then was advanced all the way to the 2nd portion of the duodenum it was then withdrawn slowly and mucosa overlying the 2nd portion and the duodenal bulb appeared to be within normal limits. The scope was then withdrawn back into the stomach and retroflexed. Mucosa overlying the fundus appeared to be within normal limits. The previously described hiatal hernia was also noted in the retroflexed position. The scope was then straightened out. The stomach was decompressed. The scope was subsequently withdrawn. Patient tolerated procedure well. IMPRESSION: 1. Distal esophagitis, mild. 2. Hiatal hernia. 3. Gastritis biopsied. Biopsy sent stain for H. pylori. 4. Approximately 1.5 cm peripyloric soft tissue lesion, biopsied. PLAN: Follow up histology. Initiate Protonix 40 mg 1 p.o. q.a.m. a.c. PROCEDURE: Patient was then turned around and after adequate lubrication of the anal canal a flexible fiberoptic Olympus colonoscope was inserted into the rectum with ease and advanced all the way to the cecum. Colon was excessively spastic and irritable and suboptimally visualized. The scope was then withdrawn slowly and whatever was visualized in the mucosa overlying the cecum, ascending colon appeared to be within normal limits. One polyp was snared from the transverse colon. Diverticular disease was noted to involve the descending and the sigmoid colon. The rectum appeared to be within normal limits. The scope was then retroflexed into the distal rectum and small internal hemorrhoids were noted, none of which was actively bleeding. The scope was then straightened out and it was subsequently withdrawn. Patient tolerated the procedure well. IMPRESSION 1. Colon spastic and irritable, suboptimally visualized. 2. Transverse colon polyp snared. 3. Diverticulosis. 4. Anastomosis at 30 cm from the anal verge, intact. 5. Internal hemorrhoids, none actively bleeding. PLAN: Follow up histology. Patient will need small bowel series. There is no need for followup colonoscopy. Job#: [id number] cc:LIANE SÁNCHEZ
== END | disposition home or self-care (01) ==
LOC: OR 16:03
PROVIDERS: ATTEND Internal Medicine Gastroenterology
DX: D50.9 Iron deficiency anemia, unspecified (principal); K63.5 Polyp of colon; K29.70 Gastritis, unspecified, without bleeding; K20.9 Esophagitis, unspecified; K44.9 Diaphragmatic hernia without obstruction or gangrene; K31.9 Disease of stomach and duodenum, unspecified; K21.9 Gastro-esophageal reflux disease without esophagitis; K58.9 Irritable bowel syndrome, unspecified; K57.30 Diverticulosis of large intestine without perforation or abscess without bleeding; Z98.0 Intestinal bypass and anastomosis status; K64.8 Other hemorrhoids; I10 Essential (primary) hypertension; H91.90 Unspecified hearing loss, unspecified ear; G89.29 Other chronic pain; I25.810 Atherosclerosis of coronary artery bypass graft(s) without angina pectoris; I48.91 Unspecified atrial fibrillation; F32.9 Major depressive disorder, single episode, unspecified; Z95.5 Presence of coronary angioplasty implant and graft; Z95.1 Presence of aortocoronary bypass graft
CPT/HCPCS: 43239; 45385; 88305; 88312; J1610; J2001; 45378; 45380; J2250

== ENCOUNTER → 2017-07-17 | Day surgery (SDC) | payer MEDICARE, BC ==
[2017-07-13 17:32] LABS: BASOPHILS # (AUTO) 0.1 (0.0-0.1); BASOPHILS % 0.7 % (0.0-1.0); EOSINOPHILS # (AUTO) 0.1 (0.0-0.4); EOSINOPHILS % 0.6 % (0.0-6.0); HEMATOCRIT 32.8 % (34.2-44.1); HEMOGLOBIN 10.6 g/dL (12.0-16.0); LYMPHOCYTES # (AUTO) 0.9 (1.0-3.2); LYMPHOCYTES % 8.2 % (18.0-39.1); MEAN CORPUSCULAR HEMOGLOBIN 28.4 pg (28-32); MEAN CORPUSCULAR HGB CONC 32.3 g/dL (31-35); MEAN CORPUSCULAR VOLUME 87.9 fL (81-99); MONOCYTES # (AUTO) 0.5 (0.2-0.8); MONOCYTES % 4.9 % (4.4-11.3); NEUTROPHILS # (AUTO) 8.9 (2.1-6.9); NEUTROPHILS % 85.1 % (38.7-80.0); PLATELET COUNT 263 x10e3/uL (140-360); RED BLOOD COUNT 3.73 x10e6/uL (3.6-5.1); RED CELL DISTRIBUTION WIDTH 14.1 % (11.7-14.4)
[~2017-07-17] MED LIST changes: +EYE VITAMIN PO; -GLUCAGON FOR INJ 1 MG VIAL ONE; +LOSARTAN POTASS25 MG PO; +LOVENOX SC; -MIDAZOLAM HCL 2 MG/2 ML VIAL ONE; +VERAPAMIL ER120 MG PO; +XALATAN2.5 ML OP
--- OUTSIDE RECORDS SUMMARY | 2017-07-17 08:38 | XMS REPORT ---
Author Author [facility] Address Unknown Phone Unavailable Care Team Providers Care Printing Engineer Name Role Phone SHARIF GUPTA Unavailable Unavailable Problems This patient has no known problems. Allergies, Adverse Reactions, Alerts This patient has no known allergies or adverse reactions. Medications This patient has no known medications. Results Test Description Test Time Test Comments Text Results Atomic Results Result Comments CHEST SINGLE (PORTABLE) [place] [address] Patient Name: ALFRED CRESPO MR #: [id number] : 1930 Age/Sex: 86/F Req #: [id number] Adm Physician: SHARIF GUPTA MD Ordered by: JONNY BOWERS MD Report #: [id number] Location: MED/SURG2 Room/Bed: [facility] Procedure: [id number] DX/CHEST SINGLE (PORTABLE) Exam Date: Exam Time: REPORT STATUS: Signed EXAM: CHEST SINGLE (PORTABLE), AP 1 view DATE: 04/26/2017 5:00 AM Time stamp on exam: 0552 hours INDICATION: Congestive heart failure, pneumonia COMPARISON: AP view of the chest April 24, 2017 FINDINGS: LINES/TUBES: None LUNGS: Bibasilar atelectasis. PLEURA: Indeterminate for small layering pleural effusions bilaterally. HEART AND MEDIASTINUM: Stable appearance of cardiomediastinal silhouette, median sternotomy wires and mediastinal clips. BONES AND SOFT TISSUES: No acute findings. IMPRESSION: No interval change. Signed by: Dr. Geena Barth M.D. on 04/26/2017 6:31 AM Dictated By: GEENA BARTH MD 0 Transcribed By: EZRA on 630 COPY TO: JONNY BOWERS MD CHEST SINGLE (PORTABLE) [place] [address] Patient Name: ALFRED CRESPO MR #: [id number] : 1930 Age/Sex: 86/F Req #: [id number] Adm Physician: SHARIF GUPTA MD Ordered by: JN BLANCO MD Report #: [id number] Location: [facility] Room/Bed: [place] [address] Procedure: [id number] DX/CHEST SINGLE (PORTABLE) Exam Date: 04/24/17 Exam Time: 1410 REPORT STATUS: Signed PROCEDURE: CHEST SINGLE (PORTABLE) TECHNIQUE: Portable AP chest INDICATION: Angina; irregular heartbeat. COMPARISON: [facility], DX, CHEST SINGLE (PORTABLE), 01/29/2017, 10:55. FINDINGS : Study limited by underpenetration. Cardiomegaly with postoperative sequela of sternotomy. Questionable left pleural effusion. Left upper lung zone is clear. Intact skeleton. CONCLUSION: Limited study due to underpenetration. Questionable small left pleural effusion with either atelectasis or pneumonia. 2 view chest radiograph recommended. Dictated by: Nuha Young M.D. on 04/24/2017 at 14:55 Electronically approved by: Nuha Young M.D. on 04/24/2017 at 14:55 Dictated By: NUHA YOUNG MD 54 Transcribed By: REY on 04/24/171454 COPY TO: JN BLANCO MD CHEST SINGLE (PORTABLE) [place] [address] Patient Name: ALFRED CRESPO MR #: [id number] : 1930 Age/Sex: 86/F Req #: [id number] Adm Physician: SHARIF GUPTA MD Ordered by: LIANE SÁNCHEZ MD Report #: [id number] Location: ICU Room/Bed: ICU [facility] _ Procedure: [id number] DX/CHEST SINGLE (PORTABLE) Exam Date : 01/29/17 Exam Time: 1100 REPORT STATUS: Signed PROCEDURE: A single AP view of the chest. COMPARISON: None. INDICATIONS: PNEUMONIA FINDINGS: Lines/tubes: Right upper extremity PICC line has its tip in unchanged position. The enteric tube has been removed. Median sternotomy wires are intact. Lungs: Patchy perihilar airspace opacities are unchanged. Retrocardiac opacity appears similar to the prior examination. Pleura: A small left pleural effusion may be present. Heart and mediastinum: The heart and the mediastinum are unchanged. Bones: No acute bony abnormality. IMPRESSION: 1. The enteric tube has been removed. 2. Otherwise no significant interval change in multifocal airspace opacities representing infection or edema. A small left pleural effusion may be present. Dictated by: Carito Og M.D. on 01/29/2017 at 11:29 Electronically approved by: Carito Og M.D. on 01/29/2017 at 11:29 Dictated By: CARITO OG MD 28 Transcribed By: REY on 01/29/171128 COPY TO: LIANE SÁNCHEZ MD MODIFIED BA. SWALLOW [place] [address] Patient Name: ALFRED CRESPO MR #: [id number] : 1930 Age/Sex: 86/F Req #: [id number] Adm Physician: SHARIF GUPTA MD Ordered by: PAPA MCDONALD MD Report #: [id number] Location: ICU Room/Bed: ICU [facility] Procedure: [id number] DX/MODIFIED BA. SWALLOW Exam Date : 01/28/17 Exam Time: 1440 REPORT STATUS: Signed PROCEDURE: X-RAY MODIFIED BARIUM SWALLOW COMPARISON: None. INDICATIONS: R/O ASPIRATION DISCUSSION: Fluoroscopic examination was performed in conjunction with speech pathology, during swallowing of a variety of thin and thick liquid consistencies. Examination showed no premature spillage to the pyriform sinus. No aspiration or penetration was noted. Moderate to maximal vallecular residue was noted after the swallow. No pyriform sinus residue is noted. CONCLUSION: No penetration or aspiration. Please see the report from speech pathology for complete details. Doug Morin M.D. Dictated by: Doug Morin M.D. on 01/28/2017 at 18:41 Electronically approved by: Doug Morin M.D. on 01/28/2017 at 18:41 Dictated By: DOUG MORIN MD 40 Transcribed By: REY on 01/28/171840 COPY TO: PAPA MCDONALD MD CHEST SINGLE (PORTABLE) [place] [address] Patient Name: ALFRED CRESPO MR #: [id number] : 1930 Age/Sex: 86/F Req #: [id number] Adm Physician: SHARIF GUPTA MD Ordered by: PAPA MCDONALD MD Report #: [id number] Location: ICU Room/Bed: ICU [facility] Procedure: [id number] DX/CHEST SINGLE (PORTABLE) Exam Date: 01/28/17 Exam Time: 0425 REPORT STATUS: Signed EXAM: CHEST SINGLE (PORTABLE), AP 1 view DATE: 01/28/2017 5:00 AM Time stamp on exam: 0454 hours INDICATION: Pneumonia COMPARISON: AP view of the chest January 27, 2017 FINDINGS: LINES/TUBES: Stable position of right approach PICC. The distal aspect of a nasal/orogastric tube coils on itself in the expected location of the proximal stomach. LUNGS: Bilateral airspace opacities. PLEURA: No effusions or pneumothorax. HEART AND MEDIASTINUM: Stable appearance of cardiomediastinal silhouette. BONES AND SOFT TISSUES: No acute findings. IMPRESSION: Findings suggest multifocal pneumonia. Signed by: Dr. Geena Barth M.D. on 2016 5:54 AM Dictated By: GEENA BARTH MD 3 Transcribed By: EZRA on 01/28/17553 COPY TO: PAPA MCDONALD MD ABDOMEN-1VIEW (KUB) [place] [address] Patient Name: ALFRED CRESPO MR #: [id number] : 1930 Age/Sex: 86/F Req #: [id number] Adm Physician: SHARIF GUPTA MD Ordered by: PAPA MCDONALD MD Report #: [id number] Location: ICU Room/Bed: [place] [address] Procedure: [id number] DX/ABDOMEN-1VIEW (KUB) Exam Date : Exam Time: REPORT STATUS: Signed EXAM: ABDOMEN-1VIEW (KU) DATE: 01/27/2017 8:56 PM Time stamp on exam: 2104 hours INDICATION: Nasogastric tube placement COMPARISON: KUB January 27, 2017 at 2008 hours FINDINGS: See Impression IMPRESSION: Partial visualization of the upper abdomen for the purpose of localizing a nasogastric tube. Interval advancement of the nasogastric tube, which coils on itself in expected location of the antrum of the stomach with the tip at the expected location of the proximal stomach. Signed by: Dr. Geena Barth M.D. on 01/27/2017 9:47 PM Dictated By: GEENA BARTH MD 46 Transcribed By: EZRA on 01/27/172146 COPY TO: PAPA MCDONALD MD ABDOMEN-1VIEW (KUB) [address] [address] Patient Name: ALFRED CRESPO MR #: [id number] : 1930 Age/Sex: 86/F Req #: [id number] Adm Physician: SHARIF GUPTA MD Ordered by: PAPA MCDONALD MD Report #: [id number] Location: ICU Room/Bed: ICU 196 Procedure: [id number] DX/ABDOMEN-1VIEW (KUB) Exam Date : 01/27/17 Exam Time: 2029 REPORT STATUS: Signed EXAM: ABDOMEN-1VIEW (KUB) DATE: 01/27/2017 7:44 PM Time stamp on exam: 2007 INDICATION: NG tube placement COMPARISON: None FINDINGS: See Impression IMPRESSION: Partial visualization of the lower chest and upper abdomen shows a nasogastric tube coiled back on itself with tip out of field of view in the chest/esophagus. Subsequent x-ray shows repositioning. Signed by: Dr. Geena Barth M.D. on 01/27/2017 9: 46 PM Dictated By: GEENA BARTH MD 45 Transcribed By: EZRA on 01/27/172145 COPY TO: PAPA MCDONALD MD ABDOMEN-1VIEW (KUB) [place] [address] Patient Name: ALFRED CRESPO MR #: [id number] : 1930 Age/Sex: 86/F Req #: [id number] Adm Physician: SHARIF GUPTA MD Ordered by: PAPA MCDONALD MD Report #: [id number] Location: ICU Room/Bed: ICU 196 Procedure: [id number] DX/ABDOMEN-1VIEW (KUB) Exam Date : 01/27/17 Exam Time: 1630 REPORT STATUS: Signed PROCEDURE: X-RAY ABDOMEN - KUB COMPARISON: Patients [facility], DX, ABDOMEN - 1 VIEW (KUB), 08/03/2008, 21:54. INDICATIONS: NG TUBE PLACEMENT FINDINGS: Overlying artifact. NG tube is not visualized. There is a non-obstructed bowel-gas pattern. There are no calcifications projected over the renal shadows, expected course of the ureters or bladder. 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 CONCLUSION: Nasogastric tube is not visualized in part due to overlying artifact. Recommend repeat examination without overlying monitoring wire/devices. Cecy Mcnally M.D. Dictated by: Cecy Mcnally M.D. on 01/27/2017 at 18:16 Electronically approved by: Cecy Mcnally M.D. on 01/27/2017 at 18: 16 Dictated By: OSIRIS MNCALLY MD, MD 15 Transcribed By: REY on 01/27/171815 COPY TO: PAPA MCDONALD MD CHEST [facility] (PORTABLE) [place] [address] Patient Name: ALFRED CRESPO MR #: [id number] : 1930 Age/Sex: 86/F Req #: [id number] Adm Physician: SHARIF GUPTA MD Ordered by: LIANE SÁNCHEZ MD Report #: [id number] Location: ICU Room/Bed: ICU [facility] _ Procedure: DX/CHEST SINGLE (PORTABLE) Exam Date : 01/27/17 Exam Time: 0445 REPORT STATUS: Signed EXAM: CHEST SINGLE (PORTABLE), AP 1 view DATE: 01/27/2017 5:00 AM Time stamp on exam: 0504 hours INDICATION: Pneumonia COMPARISON: AP view of the chest January 26, 2017 FINDINGS: LINES/TUBES: Right approach PICC stable position LUNGS: Worsening bibasilar atelectasis. PLEURA: Possible small bilateral pleural effusions. HEART AND MEDIASTINUM: Stable enlargement. BONES AND SOFT TISSUES: No acute findings. IMPRESSION: Worsening bibasilar atelectasis. This could represent pneumonia in the appropriate clinical setting. Signed by: Dr. Geena Barth M.D. on 01/27/2017 6:27 AM Dictated By: GEENA BARTH MD 6 Transcribed By: EZRA on 626 COPY TO: LIANE SÁNCHEZ MD CHEST SINGLE (PORTABLE) [place] [address] Patient Name: ALFRED CRESPO MR #: [id number] : 1930 Age/Sex: 86/F Req #: [id number] Adm Physician: SHARIF GUPTA MD Ordered by: PAPA MCDONALD MD Report #: [id number] Location: ICU Room/Bed: ICU [facility] Procedure: [id number] DX/CHEST SINGLE (PORTABLE) Exam Date: 01/26/17 Exam Time: 2100 REPORT STATUS: Signed EXAM: CHEST SINGLE (PORTABLE), AP 1 view DATE: 01/26/2017 8:49 PM Time stamp on exam: 2055 hours INDICATION: PICC placement COMPARISON: AP view of the chest January 23, 2017 at 1853 hours FINDINGS: LINES/TUBES: Interval placement of a right approach PICC that terminates at the expected location of the atriocaval junction. LUNGS: Motion artifact and rotation limits evaluation of the lungs. Bibasilar atelectasis. PLEURA: Possible small bilateral pleural effusions. HEART AND MEDIASTINUM: Stable enlargement of the cardiomediastinal silhouette. Median sternotomy wires and mediastinal clips. BONES AND SOFT TISSUES: No acute findings. IMPRESSION: Interval placement of a right approach PICC that terminates at the expected location of the atriocaval junction. Signed by: Dr. Geena Barth M.D. on 01/26/2017 9:36 PM Dictated By: GEENA BARTH MD 35 Transcribed By : EZRA on 01/26/172135 COPY TO: PAPA MCDONALD MD CHEST SINGLE (PORTABLE) [place] [address] Patient Name: ALFRED CRESPO MR #: [id number] : 1930 Age/Sex: 86/F Req #: [id number] Adm Physician: SHARIF GUPTA MD Ordered by: LIANE SÁNCHEZ MD Report #: [id number] Location: ICU Room/Bed: [place] [address] _ Procedure: [id number] DX/CHEST SINGLE (PORTABLE) Exam Date : 01/26/17 Exam Time: 0510 REPORT STATUS: Signed EXAMINATION: CHEST SINGLE (PORTABLE) INDICATION: Pneumonia, intubated COMPARISON: 01/24/2017 and 01/25/2017 FINDINGS: TUBES and LINES: Interval placement of endotracheal tube in good position. LUNGS: Lungs are not well inflated. There are bibasilar atelectasis. There is mild prominence of the central pulmonary vasculature, consistent with pulmonary venous congestion. Mild interstitial edema present. PLEURA: Small bilateral pleural effusions HEART AND MEDIASTINUM: Cardiac size is moderately enlarged. There are atherosclerotic calcifications within the aorta. Midline sternotomy wires are intact, status post CABG procedure BONES AND SOFT TISSUES: No acute osseous lesion. Soft tissues are unremarkable. UPPER ABDOMEN: No free air under the diaphragm. IMPRESSION: 1. Stable cardiogenic central vascular congestion and bilateral pleural effusions. Mild interstitial edema present 2. No evidence of consolidation. Signed by: Dr. Carlton Castillo M.D. on 01/26/2017 6: 25 AM Dictated By: CARLTON MEDINA MD 4 Transcribed By: EZRA on 01/26/17624 COPY TO: LIANE SÁNCHEZ MD CHEST SINGLE (PORTABLE) [place] [address] Patient Name: ALFRED CRESPO MR #: [id number] : 1930 Age/Sex: 86/F Req #: [id number] Adm Physician: SHARIF GUPTA MD Ordered by: PAPA MCDONALD MD Report #: [id number] Location: ICU Room/Bed: ICU [facility] Procedure: [id number] DX/CHEST SINGLE (PORTABLE) Exam Date: 01/25/17 Exam Time: 0520 REPORT STATUS: Signed EXAMINATION: CHEST SINGLE (PORTABLE) INDICATION: Respiratory failure COMPARISON: 01/24/2017 FINDINGS: TUBES and LINES: Interval placement of endotracheal tube in good position. LUNGS: Lungs are not well inflated. There are bibasilar atelectasis. There is mild prominence of the central pulmonary vasculature, consistent with pulmonary venous congestion. Mild interstitial edema present. PLEURA: Small bilateral pleural effusions HEART AND MEDIASTINUM: Cardiac size is moderately enlarged. There are atherosclerotic calcifications within the aorta. Midline sternotomy wires are intact, status post CABG procedure BONES AND SOFT TISSUES: No acute osseous lesion. Soft tissues are unremarkable. UPPER ABDOMEN: No free air under the diaphragm. IMPRESSION: Findings are compatible with cardiogenic central vascular congestion and bilateral pleural effusions. Mild interstitial edema present Signed by: Dr. Carlton Castillo M.D. on 01/25/2017 5:53 AM Dictated By : CARLTON MEDINA MD 2 Transcribed By: EZRA on 01/25/17552 COPY TO: PAPA MCDONALD MD US RENAL RETROPERITONEAL COMP [place] [address] Patient Name: ALFRED CRESPO MR #: [id number] : 1930 Age/Sex: 86/F Req #: [id number] Adm Physician: SHARIF GUPTA MD Ordered by : MARILUZ ISRAEL MD Report #: [id number] Location: ICU Room/Bed: [place] [address] Procedure: [id number] US/US RENAL RETROPERITONEAL COMP Exam Date: Exam Time: REPORT STATUS: Signed Retroperitoneal ultrasound Indication: Acute renal failure Technique: Select images from retroperitoneal ultrasound provided for interpretation: Comparison: CT abdomen/pelvis 08/17/2015. Findings: The right kidney measures 11.1 cm in greatest length. The echotexture is normal. There is no evidence for mass. There is no collecting system dilatation or evidence of obstruction. No renal calculi evident. No adjacent free fluid or fluid collections. The left kidney measures 11.4 cm in greatest length. The echotexture is normal. There is no evidence for mass. There is no collecting system dilatation or evidence of obstruction. Calculus in the upper pole measures 3 mm.. No adjacent free fluid or fluid collections. Bladder is collapsed around a Helms catheter. No free fluid in the pelvis. Survey images of the liver and spleen demonstrate no focal abnormalities. IMPRESSION: 1. Left intrarenal calculus. No obstructive uropathy. 2. Normal renal echotexture. Signed by: Dr. Michele Jordan MD on 01/25/2017 4:48 PM Dictated By: MICHELE JORDAN MD 47 Transcribed By: EZRA on 01/25/171647 COPY TO: MARILUZ ISRAEL MD CT BRAIN WO [place] [address] Patient Name: ALFRED CRESPO MR #: [id number] : 1930 Age/Sex: 86/F Req #: [id number] Adm Physician: SHARIF GUPTA MD Ordered by: PAPA MCDONALD MD Report #: [id number] Location: ICU Room/Bed: [place] [address] Procedure: [id number] CT/CT BRAIN WO Exam Date: Exam Time: 1505 REPORT STATUS: Signed History:Severe hypoxia, change in mental status Comparison studies:None Technique: Axial images were obtained from the skull base to the vertex. Coronal and sagittal images reconstructed from the axial data. Intravenous contrast: None Findings: Scalp/skull: No abnormalities. Extra- axial spaces: No masses. No fluid collections. Brain sulci: Mildly prominent. Ventricles: Mild compensatory dilatation. No hydrocephalus. Parenchyma: Scattered small hypodensities in the supratentorial white matter are small vessel ischemic changes. Chronic lacune in the left putamen. No masses, hemorrhage, acute or chronic cortical vascular insults. Sellar/ suprasellar region: No abnormalities. Craniocervical junction: Patent foramen magnum. No Chiari one malformation. Incidental findings: Atherosclerotic calcifications in the carotid siphons and vertebral arteries . Impression: No acute abnormalities. Chronic findings: 1. Mild generalized volume loss. 2. Mild supratentorial white matter small vessel ischemic changes. Signed by: DR James Gardner M.D. on 01/24/2017 3: 29 PM Dictated By: JAMES MUNSON MD 1529 Transcribed By: EZRA on 01/24/17 1529 COPY TO: PAPA MCDONALD MD CT CHEST W [place] [address] Patient Name: ALFRED CRESPO MR #: [id number] : 1930 Age/Sex: 86/F Req #: [id number] Adm Physician: SHARIF GUPTA MD Ordered by: PAPA MCDONALD MD Report #: [id number] Location: ICU Room/Bed: ICU [facility] Procedure: CT/CT CHEST W Exam Date: Exam Time: 1532 REPORT STATUS: Signed EXAM: CT Chest WITH contrast INDICATION: Chest pain COMPARISON: None available TECHNIQUE: Chest was scanned utilizing a multidetector helical scanner from the lung apex through the level of the diaphragm after administration of IV contrast. Coronal and sagittal reconstructions were submitted for interpretation. Protocol: Pulmonary embolus protocol IV CONTRAST: 100 mL of Isovue 370 COMPLICATIONS: None RADIATION DOSE : Total exam DLP: 542.2 mGy*cm. CTDIvol has been reviewed. It is below the limits set by the Radiation Protocol Committee (RPC). FINDINGS: LINES/ TUBES: Endotracheal catheter is present with the tip position within the trachea, positioned 2 cm from the laxmi. Heart: No cardiomegaly. No pericardial effusion. Aortic valve replacement. Vessels: No intraluminal filling defect within the pulmonary arteries to the segmental level. Atherosclerotic calcifications of the thoracic aorta and coronary arteries. Postoperative changes of the ascending aorta. 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 The thoracic aorta is ectatic. Mediastinum: No mediastinal or hilar mass or lymphadenopathy. Normal thyroid. Lungs: No parenchymal mass. No focal consolidation. Normal parenchyma. Bilateral dependent compression atelectasis. Pleura: Bilateral pleural effusions. No pneumothorax. Soft tissues: Normal. No axillary mass or lymphadenopathy. Bones: No acute osseous abnormality. Degenerative changes of the thoracic spine. Adrenal glands: No adrenal nodules.. Abdomen: The partially visualized portions of the upper abdomen are unremarkable.. IMPRESSION: 1. No evidence of pulmonary arterial embolism or thrombosis to the segmental level. 2. Postoperative changes of the ascending aorta. 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 3. Bilateral pleural effusions. Signed by: Dr. Pricilla Morales M.D. on 2016 4:12 PM Dictated By: PRICILLA MORALES MD 161 Transcribed By: EZRA on 01/24/17 1612 COPY TO: PAPA MCDONALD MD CHEST [facility] (PORTABLE) [place] [address] Patient Name: ALFRED CRESPO MR #: [id number] : 1930 Age/Sex: 86/F Req #: [id number] Adm Physician: SHARIF GUPTA MD Ordered by: MARILUZ ISRAEL MD Report #: [id number] Location: ICU Room/Bed: ICU 196-1 _ Procedure: [id number] DX/CHEST SINGLE (PORTABLE) Exam Date : 01/24/17 Exam Time: 1145 REPORT STATUS: Signed EXAMINATION: Chest, CHEST SINGLE (PORTABLE) INDICATION: Shortness of breath COMPARISON: Portable chest 01/21/2017 FINDINGS : LINES: None. Heart: Normal cardiac silhouette. Vascular: The pulmonary vasculature is within normal limits. Atherosclerotic calcifications of the aortic arch. Mediastinum: No mediastinal, hilar, or axillary mass or lymphadenopathy. Lungs: No parenchymal mass. Bibasilar atelectasis. Low lung volumes are present bilaterally. Pleura: Small bilateral pleural effusions. No pneumothorax. Bones: No acute osseous abnormality. Degenerative changes of the thoracic spine. Median sternotomy wires. Soft tissues: Normal. Impression: No acute radiographic abnormality. Signed by: Dr. Pricilla Morales M.D. on 01/24/2017 12:36 PM Dictated By: PRICILLA MORALES MD 1236 COPY TO: MARILUZ ISRAEL MD CHEST SINGLE (PORTABLE) [place] [address] Patient Name: ALFRED CRESPO MR #: [id number] : 1930 Age/Sex: 86/F Req #: [id number] Adm Physician: SHARIF GUPTA MD Ordered by: MARILUZ ISRAEL MD Report #: [id number] Location: IMCU Room/Bed: IMCU 197-1 Procedure: [id number] DX/CHEST SINGLE (PORTABLE) Exam Date: 01/23/17 Exam Time: 1850 REPORT STATUS: Signed PROCEDURE: A single AP view of the chest. COMPARISON: [facility], DX, CHEST SINGLE (PORTABLE), 01/21/2017, 18:55. INDICATIONS: CHEST PAIN FINDINGS: See impression. IMPRESSION: 1. no interval change in left lower lung opacity with obscuration of the left hemidiaphragm, likely reflecting effusion and associated atelectasis or consolidation. 2. Interval development of right basilar atelectatic changes. 3. Central basilar crowding due to low lung volumes. Doug Morin M.D. Dictated by: Doug Morin M.D. on 01/23/2017 at 19:29 Electronically approved by: Doug Morin M.D. on 01/23/2017 at 19:29 Dictated By: DOUG MORIN MD 28 Transcribed By: REY on 01/23/171928 COPY TO: MARILUZ ISRAEL MD CHEST SINGLE (PORTABLE) [place] [address] Patient Name: ALFRED CRESPO MR #: [id number] : 1930 Age/Sex: 86/F Req #: [id number] Adm Physician: Ordered by: EVA BUSTILLO MD Report #: [id number] Location: ER Room/Bed: Procedure: [id number] DX/CHEST SINGLE (PORTABLE) Exam Date: 01/21/17 Exam Time: 1818 REPORT STATUS: Signed Examination: Single AP view of the chest. COMPARISON: CT abdomen and pelvis with contrast 08/17/2015 INDICATION: Chest pain DISCUSSION: Lungs are hypoinflated. Left lower lobe airspace disease results in loss of the hemidiaphragmatic contour. Trace pleural effusion or pleural thickening is also suspected. Tortuosity and atherosclerotic calcification of the thoracic aorta. Postsurgical changes of the mediastinum. No overt pulmonary edema. Right hemithorax is grossly clear. No acute osseous abnormality. IMPRESSION: Left lower lobe airspace opacity may reflect atelectasis or pneumonia with small associated pleural effusion. Follow-up chest radiograph in 8 weeks is suggested to document resolution. Signed by: Dr. Liza Eddy M.D. on 01/21/2017 7:19 PM Dictated By: LIZA EDDY MD 18 Transcribed By: EZRA on 01/21/171918 COPY TO: EVA BUSTILLO MD
--- NOTE | 2017-07-17 12:27 | Operative Report ---
DATE OF PROCEDURE: July 17, 2017 REFERRING PHYSICIAN: Dr. Lele Domínguez. PROCEDURE PERFORMED: Esophagogastroduodenoscopy with biopsies. INDICATIONS FOR ESOPHAGOGASTRODUODENOSCOPY: History of peripyloric lesion, anemia. MEDICATION: Patient was done under MAC. Please see anesthesiologist's note. PROCEDURE: With the patient in the left lateral decubitus position, the flexible fiberoptic Olympus gastroscope was introduced into the esophagus under direct visualization without any difficulty. There was some patchy erythema noted in the distal esophagus. The scope was then advanced with ease into the stomach, traversing a small sliding hiatal hernia. Mucosa overlying the antrum and the body revealed some patchy areas of erythema. The previously described peripyloric lesion was noted. It was somewhat smaller than previously described, down to approximately 1.2 cm in size. It was extensively biopsied. It felt soft, and most likely it appears to be a lipoma. Pylorus was intubated with ease, and the scope was advanced all the way to the 2nd portion of the duodenum. The scope was then withdrawn slowly. Mucosa overlying the proximal 2nd portion and the duodenal bulb appeared to be within normal limits. The scope was then withdrawn back into the stomach and retroflexed, and the mucosa overlying the fundus and the cardia appeared to be within normal limits. The scope was then straightened out. The stomach was decompressed. The scope was subsequently withdrawn. Patient tolerated the procedure well. IMPRESSION: 1. Mild distal esophagitis. 2. Small sliding hiatal hernia. 3. Gastritis, mild. 4. Peripyloric mass decreased in size to approximately 1.2 cm, multiple biopsies obtained. 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 PLAN: Follow up histology. Continue Protonix 40 mg 1 p.o. a.c. b.i.d. Job#: [id number] EV cc:LELE DOMÍNGUEZ MD
== END | disposition home or self-care (01) ==
LOC: OR 08:36
PROVIDERS: ATTEND Internal Medicine Gastroenterology
DX: Z09 Encounter for follow-up examination after completed treatment for conditions other than malignant neoplasm (principal); K31.7 Polyp of stomach and duodenum; K29.70 Gastritis, unspecified, without bleeding; K20.9 Esophagitis, unspecified; K44.9 Diaphragmatic hernia without obstruction or gangrene; K21.9 Gastro-esophageal reflux disease without esophagitis; M19.90 Unspecified osteoarthritis, unspecified site; I48.91 Unspecified atrial fibrillation; I25.10 Atherosclerotic heart disease of native coronary artery without angina pectoris; I11.0 Hypertensive heart disease with heart failure; I50.9 Heart failure, unspecified; D64.9 Anemia, unspecified; F32.9 Major depressive disorder, single episode, unspecified; Z01.810 Encounter for preprocedural cardiovascular examination; Z01.812 Encounter for preprocedural laboratory examination; Z79.02 Long term (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 of antithrombotics/antiplatelets; Z95.5 Presence of coronary angioplasty implant and graft; Z86.73 Personal history of transient ischemic attack (TIA), and cerebral infarction without residual deficits
CPT/HCPCS: 36415; 43239; 85025; 93005; J2001

== ENCOUNTER 2017-09-08 20:31 | Emergency (ER) | payer MEDICARE, BC ==
[~2017-09-08] VITALS: Ht 312.4 cm; Wt 81.2 kg
[~2017-09-08 20:31] MED LIST changes: -FENTANYL CITRATE/PF 100MCG/2 ML INJ ONE; -LIDOCAINE HCL 2% LOCAL INJ 5 ML SDV VIAL INJ ONE; -PROPOFOL IV EMULSION 10 MG/ML 50 ML VIAL ONE
[2017-09-08] MEDS ORDERED: TRAMADOL HCL 50 MG TAB PO ONE (20:45)
--- NOTE | 2017-09-08 21:31 | Diagnostic Imaging Report ---
History:Fall Comparison studies:Head CT 01/24/2017 Technique: Axial images were obtained from the skull base to the vertex. Coronal and sagittal images reconstructed from the axial data. Intravenous contrast: None Findings: Scalp/skull: No abnormalities. Extra-axial spaces: No masses. No fluid collections. Brain sulci: Mildly prominent. Ventricles: Mild compensatory dilatation. No hydrocephalus. Parenchyma: Ill-defined hypodensities in the supratentorial white matter are small vessel ischemic changes. Cortical encephalomalacic changes in the superomedial left occipital lobe of the result of an old vascular insult in the distal vascular territory of the posterior cerebral artery. No masses, hemorrhage, acute or additional chronic cortical vascular insults. Sellar/suprasellar region: No abnormalities. Craniocervical junction: Patent foramen magnum. No Chiari one malformation. Incidental findings: Atherosclerotic calcifications in the carotid siphons and intracranial vertebral arteries. Punctate senile calcifications in the globes. Impression: No acute abnormalities. No changes when compared to the head CT on 01/24/2017 Chronic findings: 1. Mild generalized volume loss. 2. Mild supratentorial white matter small vessel ischemic changes. 3. 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 Aldo Bee M.D. on 09/08/2017 9:27 PM
--- NOTE | 2017-09-08 22:06 | Diagnostic Imaging Report ---
ELBOW LEFT COMPLETE HISTORY: Pain, evaluate for fracture COMPARISON: None FINDINGS: Bones: No displaced fracture. Osseous alignment is within normal limits. Joints: Degenerative changes of the left elbow are present demonstrated by marginal osteophytes. Soft tissues: Small joint effusion is present. IMPRESSION: 1. No acute osseous abnormality. 2. However, there is a small joint effusion present. Signed by: Dr. Carlton Castillo M.D. on 09/08/2017 10:02 PM
== END 2017-09-08 22:38 | disposition home or self-care (01) ==
LOC: ER 20:31
DX: S50.02XA Contusion of left elbow, initial encounter (principal); W19.XXXA Unspecified fall, initial encounter; Y92.009 Unspecified place in unspecified non-institutional (private) residence as the place of occurrence of the external cause
CPT/HCPCS: 70450; 99284

== ENCOUNTER → 2017-09-28 | Outpatient (CLI) | payer MEDICARE, BC ==
--- NOTE | 2017-09-28 14:51 | Diagnostic Imaging Report ---
PROCEDURE:X-RAY MODIFIED BARIUM SWALLOW COMPARISON:None. INDICATIONS:Not provided. DISCUSSION:Fluoroscopic examination was performed in conjunction with speech pathology, during swallowing of a variety of thin and thick liquid consistencies. CONCLUSION:No penetration or aspiration. Please see the report from speech pathology for complete details. Dictated by: Arjun Eddy M.D. on 09/28/2017 at 14:53 Electronically approved by: Arjun Eddy M.D. on 09/28/2017 at 14:53
== END ==
LOC: DX 12:44
PROVIDERS: ATTEND Internal Medicine Gastroenterology
DX: R13.10 Dysphagia, unspecified (principal)
CPT/HCPCS: 74230; 92611; G8996; G8997; G8998

== ENCOUNTER → 2018-01-12 | Outpatient (CLI) | payer MEDICARE, BC ==
--- NOTE | 2018-01-12 14:15 | Diagnostic Imaging Report ---
Exam: Right rib series History: Status post fall, bruising Comparison: None. Findings: There is decreased bone mineralization. Acute, mildly displaced oblique fractures of the lateral aspect of the right sixth and eighth ribs. The bony structures are intact. No right consolidation or effusion. Unchanged left pleural effusion and likely associated compressive atelectasis. Impression: 1. Acute, mildly displaced oblique fractures of the lateral aspect of the right sixth and eighth ribs. Signed by: Dr. Doug Canada M.D. on 01/12/2018 2:12 PM
== END ==
LOC: RAD 13:16
PROVIDERS: ATTEND Family Medicine
DX: R07.89 Other chest pain (principal); S22.41XA Multiple fractures of ribs, right side, initial encounter for closed fracture; W18.39XA Other fall on same level, initial encounter; Z91.81 History of falling
CPT/HCPCS: 71101

== ENCOUNTER → 2018-05-07 | Day surgery (SDC) | payer MEDICARE ==
[2018-05-06 15:34] LABS: BASOPHILS # (AUTO) 0.1 (0.0-0.1); BASOPHILS % 0.9 % (0.0-1.0); EOSINOPHILS # (AUTO) 0.1 (0.0-0.4); EOSINOPHILS % 0.9 % (0.0-6.0); HEMATOCRIT 33.7 % (34.2-44.1); HEMOGLOBIN 10.3 g/dL (12.0-16.0); LYMPHOCYTES # (AUTO) 0.6 (1.0-3.2); LYMPHOCYTES % 4.9 % (18.0-39.1); MEAN CORPUSCULAR HEMOGLOBIN 24.8 pg (28-32); MEAN CORPUSCULAR HGB CONC 30.6 g/dL (31-35); MONOCYTES # (AUTO) 0.4 (0.2-0.8); MONOCYTES % 3.8 % (4.4-11.3); NEUTROPHILS % 88.7 % (38.7-80.0); PLATELET COUNT 306 x10e3/uL (140-360); RED BLOOD COUNT 4.16 x10e6/uL (3.6-5.1); RED CELL DISTRIBUTION WIDTH 16.3 % (11.7-14.4)
[~2018-05-07] MED LIST changes: +PROPOFOL IV EMULSION 10 MG/ML 50 ML VIAL ONE; +XARELTO10 MG PO
--- OUTSIDE RECORDS SUMMARY | 2018-05-07 12:19 | XMS REPORT | Continuity of Care Document ---
Author Author [facility] Address Unknown Phone Unavailable Problems Problem Status Onset Date Classification Date Reported Comments Source Chronic pain syndrome Active Problem 12/29/2016 Pop Ansari Closed fracture of lumbar vertebra without mention of spinal cord injury Active Problem 12/29/2016 Pop Ansari Unspecified drug dependence Active Problem 12/29/2016 Pop Ansari Degeneration of lumbar or lumbosacral intervertebral disc Active Problem 12/29/2016 Pop Ansari Lumbosacral spondylosis without myelopathy Active Problem 12/29/2016 Pop Ansari Spondylosis without myelopathy or radiculopathy, lumbosacral region Active Problem 07/24/2017 Pop Ansari Other intervertebral disc degeneration, lumbosacral region Active Problem 07/24/2017 Pop Ansari Lumbar radiculopathy Active Problem 07/24/2017 Pop Ansari DDD , lumbosacral Active Problem 07/24/2017 Pop Ansari Lumbosacral spondylosis without myelopathy Active Problem 07/24/2017 Pop Ansari Chronic pain syndrome Active Problem 07/24/2017 Pop Ansari 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 Active Problem 07/24/2017 Pop Ansari Sprain of right rotator cuff capsule, sequela Active Diagnosis 12/29/2016 Pop Ansari Lumbar facet arthropathy Active Problem 07/24/2017 Pop Ansari Medications Medication Details Route Status Patient Instructions Ordering Provider Order Date Source Lexapro 0.5 tablet Orally Active 20 MG Orally Once a day Theo 12/26/2016 Pop Ansari Doxycycline Hyclate 1 tablet Orally Active 20 MG Orally every 8 hours Theo 12/26/2016 Pop Ansari Tramadol HCl 1 tablet as needed Orally Active 50 MG Orally Bid Theo 12/26/2016 Pop Ansari Altace 1 capsule Orally Active 2.5 MG Orally Once a day as needed Theo 12/26/2016 Pop Ansari [place] 1 tablet as needed Orally Active 10-325 MG Orally every 6 hrs Theo 12/26/2016 Pop Ansari Morphine Sulfate 1 tablet as needed Orally Active 15 MG Orally every 12 hrs [facility] 10/24/2016 Pop Ansari [place] 1 tablet as needed Orally Active 10-325 MG Orally TID [facility] 09/24/2016 Pop Ansari Morphine Sulfate 1 tablet as needed Orally Active 15 MG Orally daily [facility] 08/28/2016 Pop Ansari Percocet 1 tablet as needed Orally Inactive 5-325 MG Orally every 6 hrs [facility] 05/18/2015 Pop Ansari Back Support as directed NA Active [facility] 10/23/2014 Pop Ansari Lexapro 0.5 tablet Orally Active 20 MG Orally Once a day [facility] Pop Ansari Doxycycline Hyclate 1 tablet Orally Active 20 MG Orally every 8 hours [facility] Pop Ansari Altace 1 capsule Orally Active 2.5 MG Orally Once a day as needed [facility] Pop Ansari Plavix 1 tablet Orally Active 75 MG Orally Once a day [facility] Pop Ansari Xalatan 1 drop into affected eye in the evening Ophthalmic Active 0.005 % Ophthalmic Once a day [facility] Pop Ansari Back Support as directed NA Active [facility] Pop Ansari Lidoderm 1 patch to skin remove after 12 hours Externally Active 5 % Externally Once a day [facility] Pop Ansari Protonix 1 tablet Orally Active 40 MG Orally Once a day [facility] Pop Ansari Norvasc 1 tablet Orally Active 5 MG Orally Twice a day [facility] Pop Ansari Vitamin D (Ergocalciferol) 1 capsule Orally Active 66223 UNIT Orally [facility] Pop Ansari Toprol XL 1/2 tablet Orally Active 100 MG Orally Twice a day [facility] Pop Ansari Gabapentin 1 capsule Orally Active 600 MG Orally at bedtime for restles leg [facility] Pop Ansari Synthroid 1 tablet Orally Active 125 MCG Orally Once a day [facility] Pop Ansari [place] 1 tablet as needed Orally Active 10-325 MG Orally TID [facility] Pop Asnari Morphine Sulfate 1 tablet as needed Orally Active 15 MG Orally every 12 hrs [facility] Pop Ansari Allergies, Adverse Reactions, Alerts Substance Category Reaction Severity Reaction type Status Date Reported Comments Source sulfa Adverse Reaction Info Not Available Adverse Reaction Active 12/26/2016 Pop Ansari penicillin Adverse Reaction Info Not Available Adverse Reaction Active 12/26/2016 Pop Ansari [place] Adverse Reaction pruritus Adverse Reaction Active 12/26/2016 Pop Ansari Immunizations Immunization Date Given Site Status Last Updated Comments Source Results Order Name Results Value Reference Range Date Interpretation Comments Source Vital Signs Vital Sign Value Date Comments Source Weight 150 12/26/2016 Pop Ansari Height 60 12/26/2016 Pop Ansari Temperature Oral (F) 97.2 F 12/26/2016 Pop Ansari Heart Rate 116 12/26/2016 Pop Ansari Diastolic (mm Hg) 70 12/26/2016 Pop Ansari Systolic (mm Hg) 140 12/26/2016 Pop Ansari Weight 150.1 10/22/2016 Pop Ansari Height 60 10/22/2016 Pop Ansari Heart Rate 116 10/22/2016 Pop Ansari Diastolic (mm Hg) 70 10/22/2016 Pop Ansari Systolic (mm Hg) 140 10/22/2016 Pop Ansari Weight 150.4 09/24/2016 Pop Ansari Height 60 09/24/2016 Pop Ansari Temperature Oral (F) 97.2 F 09/24/2016 Pop Ansari Heart Rate 64 09/24/2016 Pop Ansari Diastolic (mm Hg) 76 09/24/2016 Pop Ansari Systolic (mm Hg) 132 09/24/2016 Pop Ansari Weight 153.9 08/28/2016 Pop Ansari Height 60 08/28/2016 Pop Ansari Heart Rate 90 08/28/2016 Pop Ansari Diastolic (mm Hg) 76 08/28/2016 Pop Ansari Systolic (mm Hg) 140 08/28/2016 Pop Ansari Weight 158.1 06/30/2016 Pop Ansari Height 60 06/30/2016 Pop Ansari Diastolic (mm Hg) 58 06/30/2016 Pop Ansari Systolic (mm Hg) 124 06/30/2016 Pop Ansari Encounters Location Location Details Encounter Type Encounter Number Reason For Visit Attending Provider ADM Date DC Date Status Source Samir Ansari MD [facility] [id number] 06/30/2016 06/30/2016 Pop Hirscher Procedures Procedure Code Date Perfomer Comments Source
--- OUTSIDE RECORDS SUMMARY | 2018-05-07 12:19 | XMS REPORT ---
Author Author Hiren Venegas Organization [employer] Address Unknown Phone Unavailable Care Team Providers Care Food Or Baggage Handling Rampman Name Role Phone Hiren Venegas CP Unavailable Allergies, Adverse Reactions, Alerts Substance Reaction Event Type sulfa Info Not Available Drug Allergy penicillin Info Not Available Drug Allergy Problems Problem Type Condition Code Onset Dates Condition Status Problem Unspecified drug dependence 304.90 Active Problem 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 Active Problem Closed fracture of lumbar vertebra without mention of spinal cord injury 805.4 Active Problem Lumbar facet arthropathy M12.88 Active Problem Spondylosis without myelopathy or radiculopathy, lumbosacral region M47.817 Active Problem Lumbar radiculopathy M54.16 Active Problem assisted (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 of opiate analgesic Z79.891 Active Problem DDD (degenerative disc disease), 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 Active Problem Other intervertebral disc degeneration, lumbosacral region M51.37 Active Problem Chronic pain syndrome G89.4 Active Assessment Other intervertebral disc degeneration, lumbosacral region M51.37 Active Assessment Spondylosis without myelopathy or radiculopathy, lumbosacral region M47.817 Active Assessment Sprain of right rotator cuff capsule, sequela S43.421S Active Assessment assisted (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 of opiate analgesic Z79.891 Active Assessment Lumbar facet arthropathy M12.88 Active Problem Degeneration of lumbar or lumbosacral intervertebral disc 722.52 Active Assessment Lumbar radiculopathy M54.16 Active Problem Lumbosacral spondylosis without myelopathy 721.3 Active Assessment Chronic pain syndrome G89.4 Active Problem Chronic pain syndrome 338.4 Active Medications Medication Code System Code Instructions Start Date End Date Status Dosage Gabapentin [facility] [address]-44 600 MG Orally at bedtime for restles leg Active 1 capsule Back Support [facility] [address] October 23, 2014 Active as directed Back Support [facility] [address] Active as directed Doxycycline Hyclate [facility] [address]-30 20 MG Orally every 8 hours Active 1 tablet Altace [facility] [address]-25 2.5 MG Orally Once a day as needed Active 1 capsule Lidoderm [facility] [address]-52 5 % Externally Once a day Active 1 patch to skin remove after 12 hours Toprol XL [facility] [address]-32 100 MG Orally Twice a day Active 1/2 tablet Xalatan [facility] [address]-98 0.005 % Ophthalmic Once a day Active 1 drop into affected eye in the evening Protonix [facility] [address]-11 40 MG Orally Once a day Active 1 tablet Norvasc [facility] [address]-65 5 MG Orally Twice a day Active 1 tablet Lexapro [facility] [address]-89 20 MG Orally Once a day Active 0.5 tablet Percocet [facility] [address]-41 5-325 MG Orally every 6 hrs May 18, 2015 Active 1 tablet as needed Plavix [facility] [address]-50 75 MG Orally Once a day Active 1 tablet Synthroid [facility] [address]-37 125 MCG Orally Once a day Active 1 tablet Zaleski [facility] [address]-35 10-325 MG Orally TID Active 1 tablet as needed Morphine Sulfate [facility] [address]-61 15 MG Orally every 12 hrs Active 1 tablet as needed Vitamin D (Ergocalciferol) [facility] [address]-14 09096 UNIT Orally Active 1 capsule Vital Signs Date/Time: October 22, 2016 BMI 29.31 Index Weight 150.1 lbs Height 60 in Cardiac Monitoring Heart Rate 116 /min Blood Pressure Diastolic 70 mm Hg Blood Pressure Systolic 140 mm Hg Results No Known Results Summary Purpose [employer] Submission
--- OUTSIDE RECORDS SUMMARY | 2018-05-07 12:19 | XMS REPORT ---
Author Author Hiren Venegas Organization [employer] Address Unknown Phone Unavailable Care Team Providers Care Technical Sales Director Name Role Phone Hiren Venegas CP Unavailable [...] Active Problem Lumbar radiculopathy M54.16 Active Problem jail (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 of opiate analgesic Z79.891 Active Problem DDD (degenerative disc disease), 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 Active Problem Other intervertebral disc degeneration, lumbosacral region M51.37 Active Problem Chronic pain syndrome G89.4 Active Assessment terminal carman (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 of opiate analgesic Z79.891 Active Assessment Other intervertebral disc degeneration, lumbosacral region M51.37 Active Assessment Lumbar facet arthropathy M12.88 Active Assessment Sprain of right rotator cuff capsule, sequela S43.421S Active Assessment Chronic pain syndrome G89.4 Active Problem Degeneration of lumbar or lumbosacral intervertebral disc 722.52 Active Assessment Spondylosis without myelopathy or radiculopathy, lumbosacral region M47.817 Active Problem Lumbosacral spondylosis without myelopathy 721.3 Active Assessment Lumbar radiculopathy M54.16 Active Problem Chronic pain syndrome 338.4 Active Medications Medication Code System Code Instructions Start Date End Date Status Dosage Toprol XL [facility] [address]-26 100 MG Orally Twice a day Active 1/2 tablet Back Support [facility] [address] Active as directed Protonix [facility] [address]-55 40 MG Orally Once a day Active 1 tablet Arrey [facility] [address]-80 10-325 MG Orally TID September 24, 2016 October 24, 2016 Active 1 tablet as needed Doxycycline Hyclate [facility] [address]-19 20 MG Orally every 8 hours Active 1 tablet Percocet [facility] [address]-70 5-325 MG Orally every 6 hrs May 18, 2015 Active 1 tablet as needed Vitamin D (Ergocalciferol) [facility] [address]-57 56973 UNIT Orally Active 1 capsule Norvasc [facility] [address]-34 5 MG Orally Twice a day Active 1 tablet Lexapro [facility] [address]-92 20 MG Orally Once a day Active 0.5 tablet Gabapentin [facility] [address]-07 600 MG Orally at bedtime for restles leg Active 1 capsule Plavix [facility] [address]-71 75 MG Orally Once a day Active 1 tablet Synthroid [facility] [address]-06 125 MCG Orally Once a day Active 1 tablet Lidoderm [facility] [address]-11 5 % Externally Once a day Active 1 patch to skin remove after 12 hours Back Support [facility] [address]86 October 23, 2014 Active as directed Altace [facility] [address]-02 2.5 MG Orally Once a day as needed Active 1 capsule Xalatan [facility] [address]-07 0.005 % Ophthalmic Once a day Active 1 drop into affected eye in the evening Morphine Sulfate [facility] [address]-53 15 MG Orally every 12 hrs October 24, 2016 Active 1 tablet as needed Vital Signs Date/Time: September 24, 2016 BMI 29.37 Index Weight 150.4 lbs Height 60 in Temperature 97.2 F Cardiac Monitoring Heart Rate 64 /min Blood Pressure Diastolic 76 mm Hg Blood Pressure Systolic 132 mm Hg Results No Known Results Summary Purpose [employer] Submission
--- OUTSIDE RECORDS SUMMARY | 2018-05-07 12:19 | XMS REPORT ---
Author Author Hiren Venegas Organization [employer] Address Unknown Phone Unavailable Care Team Providers Care Bar Assistant Name Role Phone Hiren Venegas CP Unavailable Allergies, Adverse Reactions, Alerts Substance Reaction Event Type sulfa Info Not Available Drug Allergy penicillin Info Not Available Drug Allergy [place] pruritus Drug Allergy Problems Problem Type Condition Code Onset Dates Condition Status Problem Unspecified drug dependence 304.90 Active Problem 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 Active Problem Closed fracture of lumbar vertebra without mention of spinal cord injury 805.4 Active Problem Lumbar facet arthropathy M12.88 Active Problem Spondylosis without myelopathy or radiculopathy, lumbosacral region M47.817 Active Problem Lumbar radiculopathy M54.16 Active Problem keno terminal operator (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 of 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 analgesic Z79.891 Active Problem DDD (degenerative disc disease), 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 Active Problem Other intervertebral disc degeneration, lumbosacral region M51.37 Active Problem Chronic pain syndrome G89.4 Active Assessment Other intervertebral disc degeneration, lumbosacral region M51.37 Active Assessment Spondylosis without myelopathy or radiculopathy, lumbosacral region M47.817 Active Assessment Sprain of right rotator cuff capsule, sequela S43.421S Active Assessment senior living (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 of opiate analgesic Z79.891 Active Assessment Lumbar facet arthropathy M12.88 Active Problem Degeneration of lumbar or lumbosacral intervertebral disc 722.52 Active Assessment Lumbar radiculopathy M54.16 Active Problem Lumbosacral spondylosis without myelopathy 721.3 Active Assessment Chronic pain syndrome G89.4 Active Problem Chronic pain syndrome 338.4 Active Medications Medication Code System Code Instructions Start Date End Date Status Dosage Xalatan [facility] [address]-57 0.005 % Ophthalmic Once a day Active 1 drop into affected eye in the evening Lidoderm [facility] [address]-71 5 % Externally Once a day Active 1 patch to skin remove after 12 hours Vitamin D (Ergocalciferol) [facility] [address]-59 79757 UNIT Orally Active 1 capsule Gabapentin [facility] [address]-96 600 MG Orally at bedtime for restles leg Active 1 capsule Norvasc [facility] [address]-70 5 MG Orally Twice a day Active 1 tablet Lexapro [facility] [address]-88 20 MG Orally Once a day Dec 26, 2016 Active 0.5 tablet Plavix [facility] [address]-75 75 MG Orally Once a day Active 1 tablet Protonix [facility] [address]-86 40 MG Orally Once a day Active 1 tablet Doxycycline Hyclate [facility] [address]-46 20 MG Orally every 8 hours Dec 26, 2016 Active 1 tablet Tramadol HCl [facility] [address]-29 50 MG Orally Bid Dec 26, 2016 Jan 25, 2017 Active 1 tablet as needed Altace [facility] [address]-53 2.5 MG Orally Once a day as needed Dec 26, 2016 Active 1 capsule Toprol XL [facility] [address]-75 100 MG Orally Twice a day Active 1/2 tablet [place] [facility] [address]-14 10-325 MG Orally every 6 hrs Dec 26, 2016 Active 1 tablet as needed Synthroid [facility] [address]-25 125 MCG Orally Once a day Active 1 tablet Percocet [facility] [address]-67 5-325 MG Orally every 6 hrs May 18, 2015 May 18, 2015 Active 1 tablet as needed Back Support [facility] [address]53 Active as directed Back Support [facility] [address] October 23, 2014 Active as directed Vital Signs Date/Time: Dec 26, 2016 BMI 29.29 Index Weight 150 lbs Height 60 in Temperature 97.2 F Cardiac Monitoring Heart Rate 116 /min Blood Pressure Diastolic 70 mm Hg Blood Pressure Systolic 140 mm Hg Results No Known Results Summary Purpose [employer] Submission
--- OUTSIDE RECORDS SUMMARY | 2018-05-07 12:19 | XMS REPORT ---
Author Author Hiren Venegas Organization [employer] Address Unknown Phone Unavailable Care Team Providers Care Superintendent Factory Name Role Phone Hiren Venegas CP Unavailable Allergies No Known Allergies Problems Problem Type Condition Code Onset Dates Condition Status Problem Chronic pain syndrome 338.4 Active Problem Closed fracture of lumbar vertebra without mention of spinal cord injury 805.4 Active Problem Unspecified drug dependence 304.90 Active Problem Spondylosis without myelopathy or radiculopathy, lumbosacral region M47.817 Active Problem Other intervertebral disc degeneration, lumbosacral region M51.37 Active Problem Lumbar radiculopathy M54.16 Active Problem DDD (degenerative disc disease), 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 Active Problem 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 Active Problem Chronic pain syndrome G89.4 Active Problem custodial (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 of opiate analgesic Z79.891 Active Assessment Lumbar radiculopathy M54.16 Active Problem Degeneration of lumbar or lumbosacral intervertebral disc 722.52 Active Problem Lumbosacral spondylosis without myelopathy 721.3 Active Medications Medication Code System Code Instructions Start Date End Date Status Dosage Lexapro [facility] [address]-11 20 MG Orally Once a day Active 0.5 tablet Doxycycline Hyclate [facility] [address]-22 20 MG Orally every 8 hours Active 1 tablet Altace [facility] [address]-74 2.5 MG Orally Once a day as needed Active 1 capsule Plavix [facility] [address]-08 75 MG Orally Once a day Active 1 tablet Xalatan [facility] [address]-63 0.005 % Ophthalmic Once a day Active 1 drop into affected eye in the evening Morphine Sulfate [facility] [address]-48 15 MG Orally daily August 28, 2016 September 27, 2016 Active 1 tablet as needed Back Support [facility] [address]187 Active as directed Lidoderm [facility] [address]-39 5 % Externally Once a day Active 1 patch to skin remove after 12 hours Protonix [facility] [address]-60 40 MG Orally Once a day Active 1 tablet Norvasc [facility] [address]-84 5 MG Orally Twice a day Active 1 tablet Percocet [facility] [address]-34 5-325 MG Orally every 6 hrs May 18, 2015 Active 1 tablet as needed Vitamin D (Ergocalciferol) [facility] [address]-67 86470 UNIT Orally Active 1 capsule Toprol XL [facility] [address]-78 100 MG Orally Twice a day Active 1/2 tablet Gabapentin [facility] [address]-24 600 MG Orally at bedtime for restles leg Active 1 capsule Back Support [facility] [address]41 October 23, 2014 Active as directed Synthroid [facility] [address]-98 125 MCG Orally Once a day Active 1 tablet Results No Known Results Summary Purpose [employer] Submission
--- OUTSIDE RECORDS SUMMARY | 2018-05-07 12:19 | XMS REPORT ---
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
--- OUTSIDE RECORDS SUMMARY | 2018-05-07 12:19 | XMS REPORT ---
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
--- OUTSIDE RECORDS SUMMARY | 2018-05-07 12:19 | XMS REPORT ---
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
--- OUTSIDE RECORDS SUMMARY | 2018-05-07 12:20 | XMS REPORT ---
Author Author Hiren Venegas Organization [employer] Address Unknown Phone Unavailable Care Team Providers Care Esthetician Permanent Makeup Artist Name Role Phone Hiren Venegas Unavailable Allergies, Adverse Reactions, Alerts Substance Reaction Event Type sulfa Info Not Available Drug Allergy penicillin Info Not Available Drug Allergy Encounters Encounter Location Date [facility] Samir Ansari MD Jun 30, 2016 Problems Problem Type Condition ICD-9 Code Onset Dates Condition Status Problem Lumbosacral spondylosis without myelopathy 721.3 Active Problem Unspecified drug dependence 304.90 Active Problem Chronic pain syndrome 338.4 Active Problem Other intervertebral disc degeneration, lumbosacral region M51.37 Active Problem Chronic pain syndrome G89.4 Active Problem Spondylosis without myelopathy or radiculopathy, lumbosacral region M47.817 Active Problem 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 Active Problem Closed fracture of lumbar vertebra without mention of spinal cord injury 805.4 Active Problem [facility] living (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 of opiate analgesic Z79.891 Active Problem DDD (degenerative disc disease), 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 Active Assessment Spondylosis without myelopathy or radiculopathy, lumbosacral region M47.817 Active Assessment Sprain of right rotator cuff capsule, sequela S43.421S Active Assessment senior living (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 of opiate analgesic Z79.891 Active Assessment Chronic pain syndrome G89.4 Active Assessment Other intervertebral disc degeneration, lumbosacral region M51.37 Active Problem Degeneration of lumbar or lumbosacral intervertebral disc 722.52 Active Medications Medication Code System Code Instructions Start Date End Date Status Dosage [facility] [address]-94 0.005 % Ophthalmic Once a day Active 1 drop into affected eye in the evening Altace [facility] [address]-39 2.5 MG Orally Once a day as needed Active 1 capsule Protonix [facility] [address]-18 40 MG Orally Once a day Active 1 tablet Lidoderm [facility] [address]-28 5 % Externally Once a day Active 1 patch to skin remove after 12 hours Doxycycline Hyclate [facility] [address]-09 20 MG Orally every 8 hours Active 1 tablet Toprol XL [facility] [address]-03 100 MG Orally Twice a day Active 1/2 tablet Norvasc [facility] [address]-59 5 MG Orally Twice a day Active 1 tablet Vitamin D (Ergocalciferol) [facility] [address]-65 40156 UNIT Orally Active 1 capsule Back Support [facility] [address] Active as directed Back Support [facility] [address] October 23, 2014 Active as directed Percocet [facility] [address]-30 5-325 MG Orally every 6 hrs May 18, 2015 Active 1 tablet as needed Plavix [facility] [address]-60 75 MG Orally Once a day Active 1 tablet Gabapentin [facility] [address]-21 600 MG Orally at bedtime for restles leg Active 1 capsule Synthroid [facility] [address]-82 125 MCG Orally Once a day Active 1 tablet Lexapro [facility] [address]-66 20 MG Orally Once a day Active 0.5 tablet Social History Social History Element Qualifiers Date Reported Tobacco Use: . Are you a:: never smoker Jun 30, 2016 Pets: none. Jun 30, 2016 Marital Status: single. Jun 30, 2016 Diet: no. Jun 30, 2016 Caffeine: yes. frequency:, 1-5 Jun 30, 2016 Exercise: no. Jun 30, 2016 Alcohol: no. Jun 30, 2016 Travel outside [place]: no. Jun 30, 2016 Occup. exposure: none. Jun 30, 2016 Occupation: . retired Jun 30, 2016 Vital Signs Date/Time: Jun 30, 2016 Weight 158.1 lbs Height 60 in Blood Pressure Diastolic 58 mm Hg Blood Pressure Systolic 124 mm Hg Summary Purpose [employer] Submission
--- OUTSIDE RECORDS SUMMARY | 2018-05-07 12:20 | XMS REPORT ---
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
--- NOTE | 2018-05-07 16:20 | Operative Report ---
DATE OF PROCEDURE: May 07, 2018 REFERRING PHYSICIAN: Dr. Lele Domínguez. PROCEDURE PERFORMED: Colonoscopy and polypectomy. INDICATIONS FOR COLONOSCOPY: Rectal bleeding. MEDICATION: Patient was done under MAC. Please see anesthesiologist's note. PROCEDURE: With the patient in the left lateral decubitus position, flexible fiberoptic Olympus colonoscope was inserted into the rectum with ease and advanced all the way to the cecum. The scope was then withdrawn slowly and mucosa overlying the cecum appeared to be within normal limits. Diverticular disease was noted to be scattered pretty much throughout. One polyp was hot biopsied from the transverse colon. The rectum appeared to be within normal limits. The scope was then retroflexed into the distal rectum and moderate-sized internal hemorrhoids were noted, none of which was actively bleeding. The scope was then straightened out. Was subsequently withdrawn. Patient tolerated the procedure well. IMPRESSION: 1. Diverticulosis. 2. Transverse colon polyp, hot biopsied. 3. Internal hemorrhoids, none actively bleeding. PLAN: Follow up histology. Initiate high-fiber, low-fat diet. Initiate high-fiber supplement. No followup colonoscopy is indicated. Job#: [id number] cc:Lele Domínguez M.D.
[2018-05-07 16:45] VITALS: BP 145/70
== END | disposition home or self-care (01) ==
LOC: OR 12:16
PROVIDERS: ATTEND Internal Medicine Gastroenterology
DX: K62.5 Hemorrhage of anus and rectum (principal); K63.5 Polyp of colon; K57.30 Diverticulosis of large intestine without perforation or abscess without bleeding; K64.8 Other hemorrhoids; D64.9 Anemia, unspecified; I25.10 Atherosclerotic heart disease of native coronary artery without angina pectoris; I10 Essential (primary) hypertension; R06.00 Dyspnea, unspecified; Z88.1 Allergy status to other antibiotic agents; Z88.3 Allergy status to other anti-infective agents; Z88.0 Allergy status to penicillin; Z88.2 Allergy status to sulfonamides; Z01.812 Encounter for preprocedural laboratory examination; Z79.02 Long term (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 of antithrombotics/antiplatelets; Z98.61 Coronary angioplasty status
CPT/HCPCS: 36415; 45384; 85025; 88305

== ENCOUNTER 2018-07-17 05:44 | Emergency (ER) | payer MEDICARE, BC ==
[~2018-07-17] VITALS: Ht 312.4 cm; Wt 81.2 kg
[~2018-07-17 05:44] MED LIST changes: -PROPOFOL IV EMULSION 10 MG/ML 50 ML VIAL ONE
--- NOTE | 2018-07-17 07:06 | Diagnostic Imaging Report ---
Examination: CT head without contrast Clinical Indication: Fall with head injury. Technique: Transaxial noncontrast images from the skull base through the vertex were obtained. Sagittal and coronal reformatted images were done. Dose modulation, iterative reconstruction, and/or weight based adjustment of the mA/kV was utilized to reduce the radiation dose to as low as reasonably achievable. Comparison: Head CT dated 09/08/2017. Findings: Scalp: New large left frontal scalp hematoma. Bones: Intact. No fractures. No blastic or lytic lesions. Brain sulci: Mild volume loss for patient's age. Ventricles: No hydrocephalus. Extra-axial space: No abnormalities. Parenchyma: There are confluent areas of low-attenuation within subcortical and periventricular white matter, nonspecific, but could represent microvascular ischemic disease. Chronic lacunar infarcts are seen int he left caudate and left putamen. 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 No masses, hemorrhage, or acute cortical based vascular insults. Suprasellar region: No abnormalities. Craniocervical junction: The foramen magnum is patent. No Chiari one malformation. Incidental findings: Atherosclerotic calcification of the cavernous and supraclinoid internal carotid and V4 segments of the bilateral vertebral arteries. Impression: 1. No new acute intracranial finding despite new large left frontal scalp hematoma when compared to prior head CT dated 09/08/2017. 2. Mild chronic microvascular ischemic change and chronic infarcts as above. Signed by: Dr. Kasandra Albert M.D. on 07/17/2018 7:03 AM
[2018-07-17] MEDS ORDERED: METOPROLOL TARTRATE INJ 1 MG/ML VIAL IV ONE (07:15)
[2018-07-17] MEDS ORDERED: TRAZODONE HCL50 MG PO (08:08)
[2018-07-17] MEDS ORDERED: RIVASTIGMINE1.5 MG PO (08:13)
[2018-07-17] MEDS ORDERED: NYSTATIN1 EAC2 (08:13)
[2018-07-17] MEDS ORDERED: REFRESH OPTIVE1 EACH (08:13)
[2018-07-17] MEDS ORDERED: ASPIR 8181 MG (08:13)
[2018-07-17] MEDS ORDERED: MAXITROL EYE O3.5 GM (08:13)
[2018-07-17] MEDS ORDERED: DIVALPROEX SOD250 M1 PO (08:13)
[2018-07-17 08:15] LABS: BASOPHILS # (AUTO) 0.1 (0.0-0.1); BASOPHILS % 0.7 % (0.0-1.0); EOSINOPHILS # (AUTO) 0.7 (0.0-0.4); EOSINOPHILS % 5.6 % (0.0-6.0); HEMATOCRIT 29.8 % (34.2-44.1); HEMOGLOBIN 9.1 g/dL (12.0-16.0); LYMPHOCYTES # (AUTO) 2.2 (1.0-3.2); LYMPHOCYTES % 16.6 % (18.0-39.1); MEAN CORPUSCULAR HEMOGLOBIN 23.9 pg (28-32); MEAN CORPUSCULAR HGB CONC 30.5 g/dL (31-35); MEAN CORPUSCULAR VOLUME 78.4 fL (81-99); MONOCYTES # (AUTO) 1.3 (0.2-0.8); MONOCYTES % 9.7 % (4.4-11.3); NEUTROPHILS # (AUTO) 8.7 (2.1-6.9); PLATELET COUNT 389 x10e3/uL (140-360); RED CELL DISTRIBUTION WIDTH 20.5 % (11.7-14.4)
[2018-07-17 08:33] LABS: INR 1.45; PROTHROMBIN TIME 18.2 seconds (11.9-14.5)
[2018-07-17 08:34] LABS: PARTIAL THROMBOPLASTIN TIME 38.2 seconds (23.8-35.5)
[2018-07-17 08:43] LABS: ALBUMIN 3.5 g/dL (3.5-5.0); ALBUMIN/GLOBULIN RATIO 0.8 (0.8-2.0); ANION GAP 18.1 mmol/L (8-16); CREATININE, SERUM 1.16 mg/dL (0.57-1.11); POTASSIUM 3.1 mmol/L (3.5-5.1)
[2018-07-17 08:51] LABS: CREATINE KINASE MB 0.7 ng/mL (0-5.0)
[2018-07-17] MEDS ORDERED: SODIUM CHLORIDE 0.9% 500ML 500 ML IV ONE (09:15)
--- NOTE | 2018-07-17 09:25 | NUR ---
PT URINE OUTPUT POST STRAIGHT CATH APPROX 200 CC
[2018-07-17 09:49] VITALS: BP 119/78
[2018-07-17 09:49] LABS: CLARITY,URINE HAZY (CLEAR); COLOR,URINE YELLOW (YELLOW); LEUKOCYTE ESTERASE ,URINE TRACE (NEGATIVE)
[2018-07-17 09:50] LABS: BILIRUBIN,URINE NEGATIVE (NEGATIVE); KETONES,URINE NEGATIVE (NEGATIVE); NITRITE,URINE NEGATIVE (NEGATIVE); PROTEIN,URINE DIPSTICK NEGATIVE (NEGATIVE); URINE UROBILINOGEN 0.2 mg/dL (0.2 - 1)
[2018-07-17 09:54] LABS: BACTERIA,URINE FEW /HPF; EPITHELIAL CELLS,URINE FEW /LPF; RBC,URINE 0-5 /HPF (0-5)
== END 2018-07-17 10:35 ==
LOC: ER 05:44
DX: S00.83XA Contusion of other part of head, initial encounter (principal); W01.0XXA Fall on same level from slipping, tripping and stumbling without subsequent striking against object, initial encounter; Y92.128 Other place in nursing home as the place of occurrence of the external cause; I48.2 Chronic atrial fibrillation; I10 Essential (primary) hypertension; I25.10 Atherosclerotic heart disease of native coronary artery without angina pectoris; K21.9 Gastro-esophageal reflux disease without esophagitis; Z98.0 Intestinal bypass and anastomosis status
CPT/HCPCS: 36415; 70450; 80053; 81001; 82550; 82553; 84484; 85025; 85610; 85730; 93005; 99284; J7040

== ENCOUNTER → 2019-01-20 | Outpatient (CLI) | payer MEDICARE, BC ==
[~2019-01-20] MED LIST changes: +ASPIR 8181 MG; +DIVALPROEX SOD250 M1 PO; +MAXITROL EYE O3.5 GM; +NYSTATIN1 EAC2; +REFRESH OPTIVE1 EACH; +RIVASTIGMINE1.5 MG PO; +TRAZODONE HCL50 MG PO
--- NOTE | 2019-01-20 14:42 | Diagnostic Imaging Report ---
EXAM: BONE MINERAL DENSITY HISTORY: Bone mineralization evaluation COMPARISON: None DISCUSSION: Evaluation of the left hip and lumbar spine was performed utilizing DEXA Hologic bone densitometer. The study is technically adequate. Left hip femoral neck bone mineral density: 0.84 g/cm2, T-score is -0.1, Z-score is 2.4. Left hip total bone mineral density: 0.89 g/cm2, T-score is -0.4, Z-score is 1.9. Lumbar spine total bone mineral density: 1.06 gm/cm2, T-score is 0.3, Z-score is 3.1. Impression: Bone mineralization by WHO Classification is normal, the fracture risk is not increased. Signed by: Dr. Bernard Neumann M.D. on 01/20/2019 2:39 PM
--- NOTE | 2019-02-02 08:43 | Diagnostic Imaging Report ---
#[id number] - [id number] #BILATERAL DIGITAL SCREENING MAMMOGRAM WITH CAD: 01/20/2019 CLINICAL: Routine screening. No prior exams were available for comparison. Current study contains 4 films. The tissue of both breasts is heterogeneously dense. This may lower the sensitivity of mammography. Current study was also evaluated with a Computer Aided Detection (CAD) system. There are dense benign vascular calcifications in both breasts. Benign appearing calcifications are scattered throughout both breasts. No significant masses, calcifications, or other findings are seen in either breast. IMPRESSION: BENIGN Previous films are not available, we will issue an addendum when films are reviewed. There is no mammographic evidence of malignancy. A 1 year screening mammogram is recommended. The patient will be notified by letter of the results. KEITH SCHROEDER M.D. ct/:02/01/2019 09:40:59 Veneer Manufacturer: Lisa DONALDSON)[place]), [facility] letter sent: Normal Exam Mammogram BI-RADS: 2 Benign
== END ==
LOC: MAMMO 12:37
DX: Z12.31 Encounter for screening mammogram for malignant neoplasm of breast (principal); M89.9 Disorder of bone, unspecified; Z78.0 Asymptomatic menopausal state
CPT/HCPCS: 77067; 77080

== ENCOUNTER → 2019-06-21 | Outpatient (CLI) | payer MEDICARE, BC ==
--- NOTE | 2019-06-21 13:38 | Diagnostic Imaging Report ---
EXAMINATION: CHEST 2 VIEWS INDICATION: Bronchitis COMPARISON: Chest radiograph of 01/12/2018 FINDINGS: LINES/TUBES:None LUNGS:The lungs are moderately inflated. Mild patchy opacity at the left lung base, likely subsegmental atelectasis. PLEURA:No pleural effusion or pneumothorax. MEDIASTINUM:Cardiomediastinal silhouette is stably enlarged. Atherosclerotic calcifications of the thoracic aorta. 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 BONES/SOFT TISSUES:No acute osseous injury. Sternotomy wires in place. ABDOMEN:No free air under the diaphragm. IMPRESSION: Mild left basilar opacity, most likely subsegmental atelectasis. Cardiomegaly. Signed by: Lauren Metcalf MD on 06/21/2019 1:35 PM
--- NOTE | 2019-06-21 14:20 | Diagnostic Imaging Report ---
EXAM: Right upper quadrant abdominal ultrasound INDICATION: Right upper quadrant pain COMPARISON: None. TECHNIQUE: Transverse and longitudinal images of the right upper quadrant abdomen were obtained FINDINGS: Liver: Size: 10.0 cm in the right midclavicular line, normal Appearance: Normal echogenicity, smooth contour Mass: No focal masses Gallbladder: No gallbladder distension, pericholecystic fluid, wall thickening, stone, or reported sonographic Javed's sign. Gallbladder wall measures 2 mm. Bile Ducts: Intrahepatic Ducts: No dilatation Extrahepatic Ducts: Common bile duct measures 4 mm Pancreas: Visualized portions of the pancreatic head, neck and proximal body are normal. Kidney: The right kidney measures 9.6 cm without evidence of hydronephrosis or stone. Vessels: Aorta: Visualized portions are normal Inferior Vena Cava: Visualized portions are normal Main Portal Vein: 0.6 cm, normal size with hepatopetal flow. Free Fluid: No ascites or pleural effusion IMPRESSION: No sonographic evidence of cholelithiasis or cholecystitis. Signed by: Lauren Metcalf MD on 06/21/2019 2:17 PM
== END ==
LOC: US 12:39
PROVIDERS: ATTEND Internal Medicine Cardiovascular Disease
DX: R07.9 Chest pain, unspecified (principal); J44.1 Chronic obstructive pulmonary disease with (acute) exacerbation; R10.11 Right upper quadrant pain
CPT/HCPCS: 71046; 76705